=== PATIENT | male | born 1970 | race African-American/Black ===

== ENCOUNTER 2024-06-26 08:18 | Emergency (ER) | payer BC, MEDICAID ==
[~2024-06-26] VITALS: Ht 167.6 cm; Wt 102.0 kg
[2024-06-26 08:48] LABS: CLARITY URINE CLEAR (CLEAR); COLOR URINE DARK YELLOW (YELLOW); GLUCOSE URINE NEGATIVE (NEGATIVE); KETONES URINE NEGATIVE (NEGATIVE); LEUKOCYTE ESTERASE URINE NEGATIVE (NEGATIVE); NITRITE URINE NEGATIVE (NEGATIVE); OCCULT BLOOD URINE TRACE (NEGATIVE); PH URINE 5.5 (4.5-8.0); PROTEIN URINE 3+ (NEGATIVE); SPECIFIC GRAVITY URINE 1.023 (1.005-1.030)
[2024-06-26 08:50] LABS: BASOPHILS % 1.4 % (0.0-2.0); DIFFERENTIAL COMMENT 0; EOSINOPHILS % 1.5 % (0.0-5.0); HEMATOCRIT. 38.2 % (42.0-52.0); HEMOGLOBIN. 12.4 g/dL (14.0-18.0); LYMPHOCYTES % 9.3 % (20.0-50.0); MEAN CORPUSCULAR HEMOGLOBIN 29.1 pg (28.0-32.0); MEAN CORPUSCULAR HGB CONC 32.3 g/dL (31.0-37.0); MEAN CORPUSCULAR VOLUME 90.1 fL (80.0-94.0); MEAN PLATELET VOLUME 8.3 fl (7.4-10.4); MONOCYTES % 7.6 % (2.0-8.0); NEUTROPHILS % 80.2 % (40.0-76.0); PLATELET 339 x1000/uL (130-400); RED BLOOD CELL COUNT 4.24 mill/uL (4.7-6.1); RED CELL DISTRIBUTION WIDTH 16.5 % (11.6-14.6); WHITE BLOOD COUNT 6.4 x1000/uL (4.5-11.0)
[2024-06-26 08:57] LABS: POTASSIUM 4.5 mEq/L (3.5-5.1)
[2024-06-26 08:58] LABS: CALCIUM 10.2 mg/dL (8.7-10.4)
[2024-06-26 09:03] LABS: CREATININE 2.2 mg/dL (0.6-1.3)
[2024-06-26 09:04] LABS: ALANINE AMINOTRANSFERASE 58 IU/L (10-49); ALBUMIN 4.2 g/dL (3.2-4.8); ASPARTATE AMINOTRANSFERASE 46 IU/L (<34); BILIRUBIN DIRECT 0.6 mg/dL (<=3.0); BILIRUBIN TOTAL 1.5 mg/dL (0.1-1.0)
[2024-06-26 09:05] LABS: PROTEIN TOTAL 7.2 g/dL (6.0-8.3)
[2024-06-26 09:09] LABS: FINE GRANULAR CASTS URINE 0-5 /lpf; SQUAMOUS EPITHELIAL CELL URINE FEW /lpf (RARE/1+)
[2024-06-26 09:10] LABS: RBC URINE 0-2 /hpf (0-2); WBC URINE 0-2 /hpf (0-2)
[2024-06-26 09:11] LABS: BACTERIA URINE NONE SEEN; MUCUS URINE TRACE /lpf (NONE/TRACE)
[2024-06-26 10:40] VITALS: PULSE 61; RESP 22; O2SAT 99
[2024-06-26] MEDS: MAGNESIUM/ALUMINUM HYDROXIDE/SIMETHICONE 30ML UDC PO STA (10:59)
[2024-06-26] MEDS: ONDANSETRON 4MG ODT PO STA (10:59)
[2024-06-26] MEDS: DICYCLOMINE 10 MG/5 ML ORAL SYR PO STA (10:59)
[2024-06-26] MEDS: KETOROLAC 30MG/ML VIAL IM STA (11:00)
[2024-06-26 12:26] VITALS: PULSE 61; RESP 22; O2SAT 99
[2024-06-26] MEDS ORDERED: FAMO-135 MT (13:19)
[2024-06-26] MEDS ORDERED: IBUP-2029 MT (13:19)
[2024-06-26 13:26] VITALS: BP 123/87; TEMP 36.66960; O2SAT 99
[2024-06-26 16:15] VITALS: PULSE 82; RESP 20; O2SAT 95
[2024-07-04] MEDS ORDERED: COR3 PO (11:50)
[2024-07-04] MEDS ORDERED: LOSA25TA26 PO (11:50)
[2024-07-04] MEDS ORDERED: ASPI-1160 PO (11:50)
[2024-07-04] MEDS ORDERED: ATOR40TA70 MT (11:50)
[2024-07-04] MEDS ORDERED: EMPA10TA PO (11:50)
[2024-07-04] MEDS ORDERED: FURO80TA3 MT (11:50)
== END 2024-06-26 13:30 | disposition home or self-care (01) ==
LOC: ER 09:02
DX: N17.9 Acute kidney failure, unspecified (principal); K76.0 Fatty (change of) liver, not elsewhere classified; I11.9 Hypertensive heart disease without heart failure; I25.2 Old myocardial infarction
CPT/HCPCS: 80076; 80048; 81003; 83690; 85025; 36415; 76700; 94640; 96372; 99285; Q0162; J1885; Z7610 ×2

== ENCOUNTER 2024-08-07 09:05 | Emergency (ER) | payer BC, MEDICAID ==
[~2024-08-07] VITALS: Ht 170.2 cm; Wt 99.7 kg
[~2024-08-07 09:05] MED LIST: ASPI-1160 PO; ATOR40TA70 MT; COR3 PO; EMPA10TA PO; FAMO-135 MT; FURO80TA3 MT; IBUP-2029 MT; LOSA25TA26 PO
[2024-08-07 09:06] VITALS: O2SAT 98
[2024-08-07] MEDS ORDERED: ATOR40TA70 MT (09:24)
[2024-08-07] MEDS ORDERED: LOSA25TA26 PO (09:24)
[2024-08-07] MEDS ORDERED: COR3 PO (09:24)
[2024-08-07] MEDS ORDERED: ASPI-1160 PO (09:24)
[2024-08-07] MEDS ORDERED: EMPA10TA PO (09:24)
[2024-08-07] MEDS ORDERED: FURO80TA3 MT (09:24)
[2024-08-07 09:26] VITALS: BP 144/87; PULSE 81; RESP 18; TEMP 36.78072; O2SAT 98
== END 2024-08-07 10:01 | disposition home or self-care (01) ==
LOC: ER 09:05
DX: Z76.0 Encounter for issue of repeat prescription (principal); I25.2 Old myocardial infarction; I10 Essential (primary) hypertension; Z79.899 Other long term (current) drug therapy; Z00.00 Encounter for general adult medical examination without abnormal findings
CPT/HCPCS: 99281

== ENCOUNTER 2024-10-03 03:12 | Inpatient (IN) | payer BC, MEDICAID ==
[~2024-10-03] VITALS: Ht 170.2 cm; Wt 92.5 kg
[2024-10-03 06:37] LABS: BASOPHILS % 1.8 % (0.0-2.0); EOSINOPHILS % 2.7 % (0.0-5.0); HEMATOCRIT. 36.3 % (42.0-52.0); HEMOGLOBIN. 11.5 g/dL (14.0-18.0); LYMPHOCYTES % 12.3 % (20.0-50.0); MEAN CORPUSCULAR HEMOGLOBIN 27.4 pg (28.0-32.0); MEAN CORPUSCULAR HGB CONC 31.7 g/dL (31.0-37.0); MEAN CORPUSCULAR VOLUME 86.5 fL (80.0-94.0); MEAN PLATELET VOLUME 9.1 fl (7.4-10.4); MONOCYTES % 10.9 % (2.0-8.0); NEUTROPHILS % 72.3 % (40.0-76.0); PLATELET 264 x1000/uL (130-400); RED CELL DISTRIBUTION WIDTH 19.2 % (11.6-14.6); WHITE BLOOD COUNT 4.7 x1000/uL (4.5-11.0)
[2024-10-03 07:03] LABS: INR 1.2; PARTIAL THROMBOPLASTIN TIME 27.9 sec (23.4-31.0)
[2024-10-03 08:33] LABS: CHLORIDE 102 mEq/L (98-107); POTASSIUM 4.6 mEq/L (3.5-5.1); SODIUM 137 mEq/L (136-145)
[2024-10-03 08:35] LABS: CALCIUM 9.4 mg/dL (8.7-10.4); CARBON DIOXIDE 26 mEq/L (21-32)
[2024-10-03 08:40] LABS: CREATININE 2.1 mg/dL (0.6-1.3); GLUCOSE 94 mg/dL (70-105); UREA NITROGEN BLOOD 44 mg/dL (9-23)
[2024-10-03 08:42] LABS: ALANINE AMINOTRANSFERASE 26 IU/L (10-49); ASPARTATE AMINOTRANSFERASE 31 IU/L (<34); BILIRUBIN DIRECT 0.8 mg/dL (<=3.0); BILIRUBIN TOTAL 2.1 mg/dL (0.1-1.0); PROTEIN TOTAL 7.3 g/dL (6.0-8.3)
[2024-10-03] MEDS: FUROSEMIDE 40MG/4ML VIAL IVP SCH ×2 (08:50→17:05)
[2024-10-03] MEDS: FUROSEMIDE 40MG/4ML VIAL IVP ONE (08:51)
[2024-10-03 09:09] LABS: TROPONIN I HIGH SENSITIVITY 267 ng/L (3.0-53)
[2024-10-03 09:18] LABS: CLARITY URINE CLEAR (CLEAR); COLOR URINE DARK YELLOW (YELLOW); GLUCOSE URINE NEGATIVE (NEGATIVE); KETONES URINE TRACE (NEGATIVE); LEUKOCYTE ESTERASE URINE NEGATIVE (NEGATIVE); NITRITE URINE NEGATIVE (NEGATIVE); OCCULT BLOOD URINE NEGATIVE (NEGATIVE); PROTEIN URINE 3+ (NEGATIVE); SPECIFIC GRAVITY URINE 1.024 (1.005-1.030)
[2024-10-03 09:31] LABS: BACTERIA URINE NONE SEEN; RBC URINE 0-2 /hpf (0-2); SQUAMOUS EPITHELIAL CELL URINE NONE SEEN /lpf (RARE/1+); WBC URINE 0-2 /hpf (0-2); YEAST URINE NONE SEEN
[2024-10-03] MEDS ORDERED: ACETAMINOPHEN 325MG TABLET PO PRN (10:15)
[2024-10-03] MEDS ORDERED: DOCUSATE SODIUM 100MG CAPSULE PO PRN (10:15)
[2024-10-03] MEDS ORDERED: MAGNESIUM/ALUMINUM HYDROXIDE/SIMETHICONE 30ML UDC PO PRN (10:15)
[2024-10-03] MEDS ORDERED: IPRATROPIUM/ALBUTEROL 0.5-3(2.5)MG/3ML NEB NEB PRN (10:15)
[2024-10-03] MEDS ORDERED: CLONIDINE 0.1MG TABLET PO PRN (10:15)
[2024-10-03 10:52] LABS: *AMPHETAMINES SCREEN URINE NEGATIVE (NEGATIVE); *BARBITURATES SCREEN URINE NEGATIVE (NEGATIVE); *BENZODIAZEPINES SCREEN URINE NEGATIVE (NEGATIVE); *COCAINE SCREEN URINE NEGATIVE (NEGATIVE); CANNABINOID URINE SCREEN NEGATIVE (NEGATIVE); ECSTASY MDMA SCREEN URINE NEGATIVE (NEGATIVE); METHADONE URINE SCREEN NEGATIVE (NEGATIVE); OPIATES URINE SCREEN NEGATIVE (NEGATIVE); PHENCYCLIDINE URINE SCREEN NEGATIVE (NEGATIVE)
[2024-10-03] MEDS: FAMOTIDINE 20MG TABLET PO SCH (11:07)
[2024-10-03] MEDS: ENOXAPARIN 40MG/0.4ML SYR SUBCUT SCH (11:07)
[2024-10-03] MEDS: METOLAZONE 5MG TABLET PO SCH (11:07)
[2024-10-03 12:28] LABS: IRON 33 ug/dL (65-175); TRIGLYCERIDE 91 mg/dL (0-150)
[2024-10-03 12:29] LABS: LDL CHOLESTEROL 75 mg/dL (5-100)
[2024-10-03 12:30] LABS: CHOLESTEROL 130 mg/dL (<200); HDL CHOLESTEROL 38 mg/dL (>55); TOTAL IRON BINDING CAPACITY 431 ug/dl (250-425)
[2024-10-03 12:32] LABS: T4 FREE 1.62 ng/dL (0.89-1.76); THYROID STIMULATING HORMONE 0.69 uIU/mL (0.55-4.78)
[2024-10-03 14:00] VITALS: BP 143/93; PULSE 96; RESP 20; TEMP 36.6696; O2SAT 99
[2024-10-03 14:03] VITALS: BP 143/93; PULSE 96; RESP 20; TEMP 36.696
[2024-10-03 17:06] VITALS: BP 121/76; PULSE 99; RESP 20; TEMP 37.00296; O2SAT 95
[2024-10-03] MEDS: ACETAMINOPHEN 325MG TABLET PO PRN (17:06)
[2024-10-03] MEDS: GUAIFENESIN 200MG/10ML SUGAR FREE UDC PO PRN (17:19)
[2024-10-03 19:27] LABS: CREATINE KINASE MB FRACTION 4.3 ng/mL (0.5-3.6)
[2024-10-03 19:34] LABS: VITAMIN B12 SERUM 722 pg/mL (211-911)
[2024-10-03 19:45] LABS: HEPATITIS B SURFACE ANTIGEN NEGATIVE (Negative)
[2024-10-03 19:47] LABS: FOLIC ACID (FOLATE) SERUM > 20.00 ng/mL (>5.38)
[2024-10-03 20:00] VITALS: BP 139/84; PULSE 96; RESP 20; TEMP 36.05844; O2SAT 97
[2024-10-03 20:06] LABS: HEPATITIS C AB NON REACTIVE (Neg) (Negative)
[2024-10-03] MEDS: ZOLPIDEM TARTRATE 5MG TABLET PO PRN (20:40)
[2024-10-03] MEDS: SPIRONOLACTONE 25MG TABLET PO SCH (20:41)
[2024-10-03] MEDS ORDERED: FAMOTIDINE 20MG TABLET PO SCH (21:00)
[2024-10-04] VITALS: BP 119/80; PULSE 45; RESP 20; TEMP 36.3918; O2SAT 98
[2024-10-04 00:43] LABS: CREATINE KINASE MB FRACTION 5.1 ng/mL (0.5-3.6)
[2024-10-04 04:00] VITALS: BP 134/83; PULSE 92; RESP 20; TEMP 36.6696; O2SAT 93; O2SAT 98
[2024-10-04 08:00] VITALS: BP 116/89; PULSE 95; RESP 19; TEMP 36.3918; O2SAT 98
[2024-10-04 12:00] VITALS: BP 139/82; PULSE 94; RESP 20; TEMP 36.89184; O2SAT 97
[2024-10-04 13:11] LABS: BASOPHILS % 2.3 % (0.0-2.0); DIFFERENTIAL COMMENT 0; EOSINOPHILS % 1.5 % (0.0-5.0); HEMATOCRIT. 36.7 % (42.0-52.0); HEMOGLOBIN. 11.6 g/dL (14.0-18.0); LYMPHOCYTES % 13.8 % (20.0-50.0); MEAN CORPUSCULAR HEMOGLOBIN 26.8 pg (28.0-32.0); MEAN CORPUSCULAR HGB CONC 31.7 g/dL (31.0-37.0); MEAN CORPUSCULAR VOLUME 84.7 fL (80.0-94.0); MEAN PLATELET VOLUME 9.2 fl (7.4-10.4); MONOCYTES % 14.9 % (2.0-8.0); NEUTROPHILS % 67.5 % (40.0-76.0); PLATELET 287 x1000/uL (130-400); RED BLOOD CELL COUNT 4.33 mill/uL (4.7-6.1); RED CELL DISTRIBUTION WIDTH 18.7 % (11.6-14.6); WHITE BLOOD COUNT 5.7 x1000/uL (4.5-11.0)
[2024-10-04 13:14] LABS: CHLORIDE 96 mEq/L (98-107); POTASSIUM 3.8 mEq/L (3.5-5.1); SODIUM 132 mEq/L (136-145)
[2024-10-04 13:17] LABS: CALCIUM 9.8 mg/dL (8.7-10.4); CARBON DIOXIDE 26 mEq/L (21-32)
[2024-10-04 13:22] LABS: CREATININE 2.1 mg/dL (0.6-1.3); GLUCOSE 94 mg/dL (70-105); UREA NITROGEN BLOOD 48 mg/dL (9-23)
[2024-10-04 13:24] LABS: ALANINE AMINOTRANSFERASE 30 IU/L (10-49); ALBUMIN 4.1 g/dL (3.2-4.8); ASPARTATE AMINOTRANSFERASE 34 IU/L (<34); BILIRUBIN TOTAL 2.2 mg/dL (0.1-1.0); PHOSPHORUS 3.4 mg/dL (2.5-4.9); PROTEIN TOTAL 7.7 g/dL (6.0-8.3)
[2024-10-04 16:00] VITALS: BP 131/82; PULSE 96; RESP 18; TEMP 36.72516; O2SAT 96
[2024-10-04] MEDS: NITROGLYCERIN 0.4MG TABLET SL SL PRN (19:36)
[2024-10-04 20:00] VITALS: BP 121/75; PULSE 98; RESP 20; TEMP 36.61404; O2SAT 95
[2024-10-05] VITALS: BP 130/79; PULSE 82; RESP 18; TEMP 36.78072; O2SAT 97
[2024-10-05 08:00] VITALS: BP 112/72; PULSE 93; RESP 18; TEMP 36.3918; O2SAT 98
[2024-10-05] MEDS: ONDANSETRON HCL 4MG/2ML INJ IV PRN (09:33)
[2024-10-05] MEDS ORDERED: SPIR25TA MT (09:57)
[2024-10-05] MEDS ORDERED: FURO80TA3 MT (09:57)
[2024-10-05 12:00] VITALS: BP 121/87; PULSE 86; RESP 19; TEMP 36.28068; O2SAT 97
[2024-10-05 13:21] LABS: BASOPHILS % 1.3 % (0.0-2.0); EOSINOPHILS % 1.6 % (0.0-5.0); HEMOGLOBIN. 13.1 g/dL (14.0-18.0); LYMPHOCYTES % 8.5 % (20.0-50.0); MEAN CORPUSCULAR HEMOGLOBIN 27.2 pg (28.0-32.0); MEAN CORPUSCULAR VOLUME 84.9 fL (80.0-94.0); NEUTROPHILS % 76.6 % (40.0-76.0); PLATELET 318 x1000/uL (130-400); RED BLOOD CELL COUNT 4.83 mill/uL (4.7-6.1); RED CELL DISTRIBUTION WIDTH 18.7 % (11.6-14.6); WHITE BLOOD COUNT 7.1 x1000/uL (4.5-11.0)
[2024-10-05 13:31] LABS: CHLORIDE 94 mEq/L (98-107); SODIUM 131 mEq/L (136-145)
[2024-10-05 13:32] LABS: CARBON DIOXIDE 26 mEq/L (21-32)
[2024-10-05 13:37] LABS: CREATININE 2.2 mg/dL (0.6-1.3); GLUCOSE 99 mg/dL (70-105); UREA NITROGEN BLOOD 43 mg/dL (9-23)
[2024-10-05 13:39] LABS: ALANINE AMINOTRANSFERASE 29 IU/L (10-49); ALBUMIN 4.1 g/dL (3.2-4.8); ASPARTATE AMINOTRANSFERASE 32 IU/L (<34); PHOSPHORUS 4.5 mg/dL (2.5-4.9)
[2024-10-05 13:40] LABS: PROTEIN TOTAL 7.5 g/dL (6.0-8.3)
[2024-10-05 16:00] VITALS: BP 126/87; PULSE 88; RESP 19; TEMP 36.33624; O2SAT 97
[2024-10-05 17:25] VITALS: BP 126/87; PULSE 88; TEMP 97.7; O2SAT 97
== END 2024-10-05 18:54 | disposition home or self-care (01) | DRG 280 ==
LOC: ER 03:21 → 7WST 09:05 → EDBEDREQ 09:10
PROVIDERS: ADMIT Internal Medicine; ATTEND Internal Medicine
DX: I13.0 Hypertensive heart and chronic kidney disease with heart failure and stage 1 through stage 4 chronic kidney disease, or unspecified chronic kidney disease (principal); I50.43 Acute on chronic combined systolic (congestive) and diastolic (congestive) heart failure; I21.A1 Myocardial infarction type 2; J96.01 Acute respiratory failure with hypoxia; N17.9 Acute kidney failure, unspecified; Z20.822 Contact with and (suspected) exposure to COVID-19; I42.9 Cardiomyopathy, unspecified; J44.9 Chronic obstructive pulmonary disease, unspecified; D63.8 Anemia in other chronic diseases classified elsewhere; F15.10 Other stimulant abuse, uncomplicated; I44.0 Atrioventricular block, first degree; N18.9 Chronic kidney disease, unspecified; I25.10 Atherosclerotic heart disease of native coronary artery without angina pectoris; K74.60 Unspecified cirrhosis of liver; Z91.148 Patient's other noncompliance with medication regimen for other reason; Z87.891 Personal history of nicotine dependence
CPT/HCPCS: 36415; 71045; 80048; 80053; 80061; 80076; 80305; 81003; 82550; 82553; 82607; 82746; 83036; 83540; 83550; 83735; 83880; 84100; 84439; 84443; 84484; 85025; 86705; 87340; 87426; 93005; 99285; J1650; J1940; J2405

== ENCOUNTER 2025-02-16 08:21 | Inpatient (IN) | payer BC, MEDICAID ==
[~2025-02-16] VITALS: Ht 170.2 cm; Wt 95.3 kg
[~2025-02-16 08:21] MED LIST changes: +AMI2 PO; -ATOR40TA70 MT; +ATOR40TA70 PO; +CYAN-50 MT; +FURO40TA5 MT; -FURO80TA3 MT; -IBUP-2029 MT; -LOSA25TA26 PO; +LOSA50TA41 MT; +POTA-205 MT
[2025-02-16 08:48] LABS: BASOPHILS % 1.2 % (0.0-2.0); EOSINOPHILS % 5.2 % (0.0-5.0); HEMATOCRIT. 36.4 % (42.0-52.0); HEMOGLOBIN. 11.2 g/dL (14.0-18.0); LYMPHOCYTES % 12.9 % (20.0-50.0); MEAN CORPUSCULAR HEMOGLOBIN 25.2 pg (28.0-32.0); MEAN CORPUSCULAR HGB CONC 30.7 g/dL (31.0-37.0); MEAN CORPUSCULAR VOLUME 82.2 fL (80.0-94.0); MEAN PLATELET VOLUME 8.2 fl (7.4-10.4); MONOCYTES % 14.7 % (2.0-8.0); PLATELET 282 x1000/uL (130-400); RED BLOOD CELL COUNT 4.43 mill/uL (4.7-6.1); RED CELL DISTRIBUTION WIDTH 21.8 % (11.6-14.6); WHITE BLOOD COUNT 4.7 x1000/uL (4.5-11.0)
[2025-02-16 08:58] LABS: INR 1.2; PROTHROMBIN TIME 12.5 sec (9.6-11.0)
[2025-02-16 09:00] LABS: CHLORIDE 107 mEq/L (98-107); POTASSIUM 4.5 mEq/L (3.5-5.1); SODIUM 137 mEq/L (136-145)
[2025-02-16 09:01] LABS: CALCIUM 8.7 mg/dL (8.7-10.4); CARBON DIOXIDE 27 mEq/L (21-32)
[2025-02-16 09:06] LABS: GLUCOSE 100 mg/dL (70-105); UREA NITROGEN BLOOD 41 mg/dL (9-23)
[2025-02-16 09:08] LABS: ALANINE AMINOTRANSFERASE 23 IU/L (10-49); ALBUMIN 3.5 g/dL (3.2-4.8); ASPARTATE AMINOTRANSFERASE 26 IU/L (<34); BILIRUBIN DIRECT 0.6 mg/dL (<=3.0)
[2025-02-16 09:09] LABS: CREATININE 2.4 mg/dL (0.6-1.3); PROTEIN TOTAL 6.6 g/dL (6.0-8.3); TROPONIN I HIGH SENSITIVITY 117 ng/L (3.0-53)
[2025-02-16] MEDS: KETOROLAC 30MG/ML VIAL IV STA (09:27)
[2025-02-16] MEDS: ONDANSETRON HCL 4MG/2ML INJ IV STA (09:27)
[2025-02-16] MEDS: ASPIRIN 325MG EC TABLET PO ONE (09:59)
[2025-02-16] MEDS: ENOXAPARIN 80MG/0.8ML SYR SUBCUT ONE (09:59)
[2025-02-16] MEDS ORDERED: MAGNESIUM/ALUMINUM HYDROXIDE/SIMETHICONE 30ML UDC PO PRN (12:15)
[2025-02-16] MEDS ORDERED: GUAIFENESIN 200MG/10ML SUGAR FREE UDC PO PRN (12:15)
[2025-02-16] MEDS ORDERED: IPRATROPIUM/ALBUTEROL 0.5-3(2.5)MG/3ML NEB HHN PRN (12:15)
[2025-02-16] MEDS ORDERED: ONDANSETRON HCL 4MG/2ML INJ IV PRN (12:15)
[2025-02-16] MEDS ORDERED: DOCUSATE SODIUM 100MG CAPSULE PO PRN (12:15)
[2025-02-16] MEDS ORDERED: ACETAMINOPHEN 325MG TABLET PO PRN ×2 (12:15)
[2025-02-16] MEDS ORDERED: CLONIDINE 0.1MG TABLET PO PRN (12:15)
[2025-02-16 12:28] VITALS: BP 147/93; PULSE 68; RESP 18; TEMP 36.5
[2025-02-16] MEDS: PANTOPRAZOLE SODIUM 40 MG/VIAL IV SCH (13:14)
[2025-02-16] MEDS: EMPAGLIFLOZIN 10MG TABLET PO SCH (13:14)
[2025-02-16] MEDS: FUROSEMIDE 40MG/4ML VIAL IVP SCH ×2 (13:14→20:18)
[2025-02-16] MEDS: SPIRONOLACTONE 25MG TABLET PO SCH (13:19)
[2025-02-16 13:25] VITALS: BP 125/81
[2025-02-16 15:48] LABS: CLARITY URINE CLEAR (CLEAR); COLOR URINE YELLOW (YELLOW); GLUCOSE URINE 1+ (NEGATIVE); KETONES URINE NEGATIVE (NEGATIVE); LEUKOCYTE ESTERASE URINE NEGATIVE (NEGATIVE); NITRITE URINE NEGATIVE (NEGATIVE); OCCULT BLOOD URINE NEGATIVE (NEGATIVE); PROTEIN URINE TRACE (NEGATIVE); SPECIFIC GRAVITY URINE 1.009 (1.005-1.030)
[2025-02-16 16:00] VITALS: BP 138/91; PULSE 67; RESP 18; TEMP 35.9; O2SAT 100
[2025-02-16 16:03] LABS: *AMPHETAMINES SCREEN URINE NEGATIVE (NEGATIVE); *BARBITURATES SCREEN URINE NEGATIVE (NEGATIVE); *BENZODIAZEPINES SCREEN URINE NEGATIVE (NEGATIVE); *COCAINE SCREEN URINE NEGATIVE (NEGATIVE); CANNABINOID URINE SCREEN NEGATIVE (NEGATIVE); ECSTASY MDMA SCREEN URINE NEGATIVE (NEGATIVE); METHADONE URINE SCREEN NEGATIVE (NEGATIVE); OPIATES URINE SCREEN NEGATIVE (NEGATIVE); PHENCYCLIDINE URINE SCREEN NEGATIVE (NEGATIVE)
[2025-02-16 16:21] LABS: BACTERIA URINE TRACE; RBC URINE NONE SEEN /hpf (0-2); SQUAMOUS EPITHELIAL CELL URINE NONE SEEN /lpf (RARE/1+); WBC URINE 0-2 /hpf (0-2)
[2025-02-16 17:29] LABS: CHLORIDE 105 mEq/L (98-107); POTASSIUM 4.6 mEq/L (3.5-5.1); SODIUM 136 mEq/L (136-145)
[2025-02-16 17:30] LABS: CALCIUM 8.6 mg/dL (8.7-10.4); CARBON DIOXIDE 22 mEq/L (21-32)
[2025-02-16 17:35] LABS: CREATININE 2.4 mg/dL (0.6-1.3); GLUCOSE 95 mg/dL (70-105); UREA NITROGEN BLOOD 42 mg/dL (9-23)
[2025-02-16 17:37] LABS: ALANINE AMINOTRANSFERASE 25 IU/L (10-49); ALBUMIN 3.8 g/dL (3.2-4.8); ASPARTATE AMINOTRANSFERASE 26 IU/L (<34); BILIRUBIN TOTAL 1.3 mg/dL (0.1-1.0)
[2025-02-16 17:56] VITALS: BP 121/83
[2025-02-16 18:08] LABS: TROPONIN I HIGH SENSITIVITY 126 ng/L (3.0-53)
[2025-02-16] MEDS: AMIODARONE 200MG TABLET PO SCH (18:24)
[2025-02-16 18:50] LABS: CREATINE KINASE MB FRACTION 5.2 ng/mL (0.5-3.6)
[2025-02-16 20:05] VITALS: BP 123/85; PULSE 66; RESP 20; TEMP 35.3; O2SAT 97
[2025-02-16] MEDS: ATORVASTATIN CALCIUM 40MG TABLET PO SCH (20:18)
[2025-02-16] MEDS: CEFTRIAXONE 1GM/50ML 50 ML IV SCH (20:18)
[2025-02-16] MEDS: ENOXAPARIN 100MG/ML SYR SUBCUT SCH (20:18)
[2025-02-16] MEDS ORDERED: CARVEDILOL 3.125 MG TABLET PO SCH (21:00)
[2025-02-17 00:02] VITALS: BP 127/74; PULSE 62; RESP 18; TEMP 35.9; O2SAT 100
[2025-02-17 01:52] LABS: CREATINE KINASE MB FRACTION 4.1 ng/mL (0.5-3.6)
[2025-02-17 04:00] VITALS: BP 124/83; PULSE 64; RESP 19; TEMP 36; O2SAT 98
[2025-02-17 08:00] VITALS: BP 125/76; PULSE 67; RESP 18; TEMP 36.7; O2SAT 98
[2025-02-17 08:49] LABS: POTASSIUM 4.5 mEq/L (3.5-5.1)
[2025-02-17 08:51] LABS: CALCIUM 8.7 mg/dL (8.7-10.4)
[2025-02-17 08:55] LABS: CREATINE KINASE MB FRACTION 5.1 ng/mL (0.5-3.6); CREATININE 2.4 mg/dL (0.6-1.3)
[2025-02-17 08:56] LABS: HEMATOCRIT. 35.4 % (42.0-52.0); HEMOGLOBIN. 11.1 g/dL (14.0-18.0); MEAN CORPUSCULAR HEMOGLOBIN 25.2 pg (28.0-32.0); MEAN CORPUSCULAR HGB CONC 31.3 g/dL (31.0-37.0); MEAN CORPUSCULAR VOLUME 80.5 fL (80.0-94.0); MEAN PLATELET VOLUME 8.9 fl (7.4-10.4); PLATELET 300 x1000/uL (130-400); RED CELL DISTRIBUTION WIDTH 21.6 % (11.6-14.6); WHITE BLOOD COUNT 3.9 x1000/uL (4.5-11.0)
[2025-02-17 09:04] LABS: DIFFERENTIAL COMMENT 1
[2025-02-17] MEDS: ASPIRIN 81MG EC TABLET PO SCH (10:15)
[2025-02-17] MEDS: FERROUS SULFATE 325MG TABLET PO SCH (10:15)
[2025-02-17] MEDS: CARVEDILOL 3.125 MG TABLET PO SCH (10:25)
[2025-02-17 10:52] LABS: ANISOCYTOSIS 2+; PLATELET ESTIMATE NORMAL
[2025-02-17 12:00] VITALS: BP 120/67; PULSE 77; RESP 16; TEMP 36.5; O2SAT 99
[2025-02-17 16:00] VITALS: BP 118/74; PULSE 67; RESP 17; TEMP 36.4
[2025-02-17 20:00] VITALS: BP 123/81; PULSE 68; RESP 18; TEMP 36.3; O2SAT 98
[2025-02-17] MEDS: MELATONIN 3MG TABLET PO PRN (23:30)
[2025-02-18] VITALS: BP 120/82; PULSE 63; RESP 18; TEMP 36.3; O2SAT 97
[2025-02-18 04:00] VITALS: BP 106/64; PULSE 65; RESP 16; TEMP 36.4; O2SAT 95
[2025-02-18 08:28] VITALS: BP 120/78; PULSE 64; RESP 18; TEMP 36.6; O2SAT 97
[2025-02-18] MEDS: FAMOTIDINE 20MG/2ML VIAL IV SCH (08:33)
[2025-02-18 11:39] VITALS: BP 120/54; PULSE 60; RESP 18; TEMP 36.8; O2SAT 98
[2025-02-18 13:01] VITALS: BP 120/78; PULSE 60; TEMP 98; O2SAT 98
== END 2025-02-18 15:18 | disposition home or self-care (01) | DRG 280 ==
LOC: ER 08:34 → 8WST 10:14 → EDBEDREQ 10:22 → EDBEDREQTM 10:22 → ENRESERV 11:06
PROVIDERS: ADMIT Internal Medicine; ATTEND Internal Medicine
DX: I13.0 Hypertensive heart and chronic kidney disease with heart failure and stage 1 through stage 4 chronic kidney disease, or unspecified chronic kidney disease (principal); I50.23 Acute on chronic systolic (congestive) heart failure; I21.4 Non-ST elevation (NSTEMI) myocardial infarction; N17.9 Acute kidney failure, unspecified; Z59.01 Sheltered homelessness; I42.0 Dilated cardiomyopathy; I25.10 Atherosclerotic heart disease of native coronary artery without angina pectoris; E78.5 Hyperlipidemia, unspecified; D50.9 Iron deficiency anemia, unspecified; F19.10 Other psychoactive substance abuse, uncomplicated; N18.9 Chronic kidney disease, unspecified; F17.210 Nicotine dependence, cigarettes, uncomplicated; I44.7 Left bundle-branch block, unspecified; J45.909 Unspecified asthma, uncomplicated; K59.00 Constipation, unspecified; R14.0 Abdominal distension (gaseous); Z79.84 Long term (current) use of oral hypoglycemic drugs; Z79.899 Other long term (current) drug therapy; Z79.82 Long term (current) use of aspirin
CPT/HCPCS: 36415; 71045; 74018; 74176; 80048; 80053; 80076; 80305; 81003; 82550; 82553; 83880; 84484; 85025; 93005; 99285; A4606; J0696; J1650; J1885; J1940; J2405; J2470; J3490

== ENCOUNTER 2025-03-06 20:38 | Inpatient (IN) | payer BC, MEDICAID ==
[~2025-03-06] VITALS: Ht 170.2 cm; Wt 89.4 kg
[~2025-03-06 20:38] MED LIST changes: +FURO80TA3 PO; +LEVO250T74 MT; -LOSA50TA41 MT
[2025-03-06 21:10] LABS: BASOPHILS % 2.2 % (0.0-2.0); EOSINOPHILS % 1.8 % (0.0-5.0); HEMATOCRIT. 36.1 % (42.0-52.0); HEMOGLOBIN. 11.2 g/dL (14.0-18.0); LYMPHOCYTES % 16.2 % (20.0-50.0); MEAN CORPUSCULAR HEMOGLOBIN 25.3 pg (28.0-32.0); MEAN CORPUSCULAR VOLUME 81.9 fL (80.0-94.0); MEAN PLATELET VOLUME 8.7 fl (7.4-10.4); MONOCYTES % 10.9 % (2.0-8.0); NEUTROPHILS % 68.9 % (40.0-76.0); PLATELET 268 x1000/uL (130-400); RED BLOOD CELL COUNT 4.41 mill/uL (4.7-6.1); RED CELL DISTRIBUTION WIDTH 21.4 % (11.6-14.6); WHITE BLOOD COUNT 5.4 x1000/uL (4.5-11.0)
[2025-03-06 21:19] LABS: INR 1.1
[2025-03-06 21:20] LABS: CHLORIDE 103 mEq/L (98-107); POTASSIUM 4.1 mEq/L (3.5-5.1); SODIUM 136 mEq/L (136-145)
[2025-03-06 21:21] LABS: CALCIUM 9.4 mg/dL (8.7-10.4); CARBON DIOXIDE 21 mEq/L (21-32)
[2025-03-06 21:26] LABS: GLUCOSE 105 mg/dL (70-105); UREA NITROGEN BLOOD 31 mg/dL (9-23)
[2025-03-06 21:27] LABS: ETHANOL BLOOD < 10 mg/dL (<10)
[2025-03-06 21:28] LABS: ALANINE AMINOTRANSFERASE 30 IU/L (10-49); ALBUMIN 4.5 g/dL (3.2-4.8); ASPARTATE AMINOTRANSFERASE 32 IU/L (<34); BILIRUBIN DIRECT 0.8 mg/dL (<=3.0)
[2025-03-06 21:29] LABS: BILIRUBIN TOTAL 2.1 mg/dL (0.1-1.0); TROPONIN I HIGH SENSITIVITY 154 ng/L (3.0-53)
[2025-03-06] MEDS: DICYCLOMINE HCL 10MG CAPSULE PO SCH (21:52)
[2025-03-06] MEDS: ONDANSETRON 4MG ODT PO STA (21:53)
[2025-03-06] MEDS: MAGNESIUM/ALUMINUM HYDROXIDE/SIMETHICONE 30ML UDC PO STA (21:53)
[2025-03-06] MEDS: FAMOTIDINE 20MG TABLET PO ONE (21:53)
[2025-03-06] MEDS: DICYCLOMINE 10 MG/5 ML ORAL SYR PO STA (21:54)
[2025-03-06 22:19] LABS: CLARITY URINE CLEAR (CLEAR); COLOR URINE YELLOW (YELLOW); GLUCOSE URINE TRACE (NEGATIVE); KETONES URINE NEGATIVE (NEGATIVE); LEUKOCYTE ESTERASE URINE NEGATIVE (NEGATIVE); NITRITE URINE NEGATIVE (NEGATIVE); OCCULT BLOOD URINE NEGATIVE (NEGATIVE); PH URINE 6.5 (4.5-8.0); PROTEIN URINE NEGATIVE (NEGATIVE); SPECIFIC GRAVITY URINE 1.007 (1.005-1.030); UROBILINOGEN URINE 0.2 E.U./dL (0.2-1.0)
[2025-03-06 22:24] LABS: *AMPHETAMINES SCREEN URINE NEGATIVE (NEGATIVE); *BARBITURATES SCREEN URINE NEGATIVE (NEGATIVE); *BENZODIAZEPINES SCREEN URINE NEGATIVE (NEGATIVE); *COCAINE SCREEN URINE NEGATIVE (NEGATIVE); CANNABINOID URINE SCREEN NEGATIVE (NEGATIVE); ECSTASY MDMA SCREEN URINE NEGATIVE (NEGATIVE); METHADONE URINE SCREEN NEGATIVE (NEGATIVE); OPIATES URINE SCREEN NEGATIVE (NEGATIVE); PHENCYCLIDINE URINE SCREEN NEGATIVE (NEGATIVE)
[2025-03-06 22:32] LABS: BACTERIA URINE NONE SEEN; RBC URINE NONE SEEN /hpf (0-2); SQUAMOUS EPITHELIAL CELL URINE RARE /lpf (RARE/1+); WBC URINE 0-2 /hpf (0-2)
[2025-03-06] MEDS: FUROSEMIDE 40MG/4ML VIAL IVP ONE (22:37)
[2025-03-06] MEDS ORDERED: FUROSEMIDE 40MG/4ML VIAL IVP SCH (23:30)
[2025-03-06] MEDS ORDERED: ONDANSETRON HCL 4MG/2ML INJ IV PRN (23:30)
[2025-03-06] MEDS ORDERED: ZOLPIDEM TARTRATE 5MG TABLET PO PRN (23:30)
[2025-03-06] MEDS ORDERED: ACETAMINOPHEN 325MG TABLET PO PRN (23:30)
[2025-03-06] MEDS ORDERED: CLONIDINE 0.1MG TABLET PO PRN (23:30)
[2025-03-06] MEDS ORDERED: NALOXONE HCL 0.4MG/ML VIAL IV PRN (23:45)
[2025-03-07] VITALS (10 sets, daily range): BP systolic 98–126; BP diastolic 47–82; PULSE 63–89; RESP 18–20; TEMP 35.7–36.4; O2SAT 94–100
[2025-03-07] MEDS: IPRATROPIUM/ALBUTEROL 0.5-3(2.5)MG/3ML NEB NEB SCH (03:32)
[2025-03-07] MEDS: PANTOPRAZOLE SODIUM 40 MG/VIAL IV SCH (08:25)
[2025-03-07] MEDS: ASPIRIN 81MG TABLET PO SCH (08:25)
[2025-03-07] MEDS: POTASSIUM CHLORIDE 20MEQ TABLET SR PO SCH (08:25)
[2025-03-07] MEDS: EMPAGLIFLOZIN 10MG TABLET PO SCH (08:26)
[2025-03-07] MEDS: AMIODARONE 200MG TABLET PO SCH (08:26)
[2025-03-07] MEDS: ATORVASTATIN CALCIUM 40MG TABLET PO SCH (08:26)
[2025-03-07] MEDS: CARVEDILOL 3.125 MG TABLET PO SCH (08:26)
[2025-03-07] MEDS: ENOXAPARIN 30MG/0.3ML SYR SUBCUT SCH (08:27)
[2025-03-07 12:38] LABS: HEMATOCRIT. 36.9 % (42.0-52.0); HEMOGLOBIN. 11.5 g/dL (14.0-18.0); MEAN CORPUSCULAR HEMOGLOBIN 25.3 pg (28.0-32.0); MEAN CORPUSCULAR HGB CONC 31.1 g/dL (31.0-37.0); MEAN CORPUSCULAR VOLUME 81.5 fL (80.0-94.0); MEAN PLATELET VOLUME 8.7 fl (7.4-10.4); PLATELET 239 x1000/uL (130-400); RED BLOOD CELL COUNT 4.53 mill/uL (4.7-6.1); WHITE BLOOD COUNT 4.2 x1000/uL (4.5-11.0)
[2025-03-07 12:45] LABS: DIFFERENTIAL COMMENT 1
[2025-03-07 12:50] LABS: POTASSIUM 3.9 mEq/L (3.5-5.1)
[2025-03-07 12:51] LABS: CALCIUM 8.9 mg/dL (8.7-10.4)
[2025-03-07 12:56] LABS: CREATININE 2.2 mg/dL (0.6-1.3)
[2025-03-07 13:32] LABS: PLATELET ESTIMATE NORMAL
[2025-03-07 13:33] LABS: ANISOCYTOSIS 2+; HYPOCHROMASIA 1+
[2025-03-07 18:02] LABS: TROPONIN I HIGH SENSITIVITY 146 ng/L (3.0-53)
[2025-03-07] MEDS: BUMETANIDE 1MG/4ML VIAL IV SCH (18:08)
[2025-03-07] MEDS: HYDROCODONE/ACETAMINOPHEN 5/325MG TABLET PO PRN (21:36)
[2025-03-08] VITALS (7 sets, daily range): BP systolic 107–120; BP diastolic 52–74; PULSE 64–81; RESP 16–20; TEMP 36.3–36.6; O2SAT 96–99
[2025-03-08 07:56] LABS: CALCIUM 9.1 mg/dL (8.7-10.4)
[2025-03-08 08:01] LABS: CREATININE 2.4 mg/dL (0.6-1.3)
[2025-03-08 08:45] LABS: BASOPHILS % 1.3 % (0.0-2.0); EOSINOPHILS % 3.7 % (0.0-5.0); HEMATOCRIT. 36.5 % (42.0-52.0); HEMOGLOBIN. 11.6 g/dL (14.0-18.0); LYMPHOCYTES % 18.9 % (20.0-50.0); MEAN CORPUSCULAR HEMOGLOBIN 25.8 pg (28.0-32.0); MEAN CORPUSCULAR HGB CONC 31.8 g/dL (31.0-37.0); MEAN PLATELET VOLUME 9.2 fl (7.4-10.4); MONOCYTES % 13.8 % (2.0-8.0); NEUTROPHILS % 62.3 % (40.0-76.0); PLATELET 249 x1000/uL (130-400); RED BLOOD CELL COUNT 4.51 mill/uL (4.7-6.1); RED CELL DISTRIBUTION WIDTH 21.3 % (11.6-14.6); WHITE BLOOD COUNT 4.5 x1000/uL (4.5-11.0)
== END 2025-03-08 13:30 | disposition home or self-care (01) | DRG 280 ==
LOC: ER 20:38 → EDBEDREQ 21:43 → 7WST 22:56 → EDBEDREQ 22:59
PROVIDERS: ADMIT Internal Medicine; ATTEND Internal Medicine
DX: I13.0 Hypertensive heart and chronic kidney disease with heart failure and stage 1 through stage 4 chronic kidney disease, or unspecified chronic kidney disease (principal); I50.23 Acute on chronic systolic (congestive) heart failure; I21.A1 Myocardial infarction type 2; I47.29 Other ventricular tachycardia; N18.4 Chronic kidney disease, stage 4 (severe); I44.7 Left bundle-branch block, unspecified; J44.9 Chronic obstructive pulmonary disease, unspecified; Z79.82 Long term (current) use of aspirin; Z79.899 Other long term (current) drug therapy
CPT/HCPCS: 36415; 71045; 74176; 76705; 80048; 80076; 80305; 80320; 81003; 83880; 84484; 85025; 93005; 93970; 94070; 94640; 94664; 94760; 98960; 99291; J1650; J1940; J2470; J3490; Q0162; G0480

== ENCOUNTER 2025-03-11 07:28 | Emergency (ER) | payer BC, MEDICAID ==
[~2025-03-11] VITALS: Ht 170.2 cm; Wt 95.0 kg
[~2025-03-11 07:28] MED LIST changes: -LEVO250T74 MT
[2025-03-11 07:45] VITALS: TEMP 36.7; O2SAT 95
[2025-03-11 08:04] LABS: BASOPHILS % 2.1 % (0.0-2.0); EOSINOPHILS % 2.1 % (0.0-5.0); HEMATOCRIT. 34.9 % (42.0-52.0); HEMOGLOBIN. 10.9 g/dL (14.0-18.0); LYMPHOCYTES % 9.2 % (20.0-50.0); MEAN CORPUSCULAR HEMOGLOBIN 25.6 pg (28.0-32.0); MEAN CORPUSCULAR HGB CONC 31.3 g/dL (31.0-37.0); MEAN PLATELET VOLUME 8.2 fl (7.4-10.4); MONOCYTES % 18.7 % (2.0-8.0); NEUTROPHILS % 67.9 % (40.0-76.0); PLATELET 264 x1000/uL (130-400); RED BLOOD CELL COUNT 4.26 mill/uL (4.7-6.1); RED CELL DISTRIBUTION WIDTH 21.4 % (11.6-14.6); WHITE BLOOD COUNT 5.6 x1000/uL (4.5-11.0)
[2025-03-11 08:17] LABS: DIFFERENTIAL COMMENT 1
[2025-03-11 08:22] LABS: POTASSIUM 4.7 mEq/L (3.5-5.1)
[2025-03-11 08:29] LABS: CREATININE 1.9 mg/dL (0.6-1.3)
[2025-03-11] MEDS: FUROSEMIDE 40MG TABLET PO NR (08:44)
[2025-03-11] MEDS: IBUPROFEN 600MG TABLET PO NR (08:45)
[2025-03-11 10:05] VITALS: BP 120/66; PULSE 78; RESP 18; O2SAT 98
== END 2025-03-11 10:12 | disposition home or self-care (01) ==
LOC: ER 07:28
DX: R51.9 Headache, unspecified (principal); I50.9 Heart failure, unspecified; I11.0 Hypertensive heart disease with heart failure; F12.90 Cannabis use, unspecified, uncomplicated; Z79.899 Other long term (current) drug therapy
CPT/HCPCS: 36415; 71045; 80048; 83880; 85025; 93005; 99285

== ENCOUNTER 2025-03-14 05:03 | Inpatient (IN) | payer BC, MEDICAID ==
[~2025-03-14] VITALS: Ht 182.9 cm; Wt 104.3 kg
[2025-03-14] VITALS (7 sets, daily range): BP systolic 91–134; BP diastolic 55–86; PULSE 75–95; RESP 18–24; TEMP 36.4–37.9; O2SAT 93–97
[2025-03-14] MEDS: MORPHINE SULFATE 4 MG/ML INJ (FOR IV/IM USE) IV STA (06:01)
[2025-03-14 06:02] LABS: BASOPHILS % 1.2 % (0.0-2.0); EOSINOPHILS % 1.2 % (0.0-5.0); HEMATOCRIT. 38.6 % (42.0-52.0); HEMOGLOBIN. 12.2 g/dL (14.0-18.0); LYMPHOCYTES % 10.1 % (20.0-50.0); MEAN CORPUSCULAR HGB CONC 31.7 g/dL (31.0-37.0); MEAN CORPUSCULAR VOLUME 81.9 fL (80.0-94.0); MEAN PLATELET VOLUME 8.5 fl (7.4-10.4); MONOCYTES % 10.3 % (2.0-8.0); NEUTROPHILS % 77.2 % (40.0-76.0); PLATELET 282 x1000/uL (130-400); RED BLOOD CELL COUNT 4.71 mill/uL (4.7-6.1); WHITE BLOOD COUNT 8.8 x1000/uL (4.5-11.0)
[2025-03-14] MEDS: ONDANSETRON HCL 4MG/2ML INJ IV STA (06:02)
[2025-03-14 06:12] LABS: ADD RBC MORPHOLOGY YES; DIFFERENTIAL COMMENT 1
[2025-03-14 06:23] LABS: CARBON DIOXIDE 21 mEq/L (21-32); CHLORIDE 106 mEq/L (98-107); POTASSIUM 4.4 mEq/L (3.5-5.1); SODIUM 136 mEq/L (136-145)
[2025-03-14 06:24] LABS: CALCIUM 9.1 mg/dL (8.7-10.4)
[2025-03-14 06:29] LABS: CREATININE 2.4 mg/dL (0.6-1.3); GLUCOSE 86 mg/dL (70-105); UREA NITROGEN BLOOD 33 mg/dL (9-23)
[2025-03-14 06:33] LABS: ANISOCYTOSIS 3+; PLATELET ESTIMATE NORMAL
[2025-03-14 06:35] LABS: TROPONIN I HIGH SENSITIVITY 172 ng/L (3.0-53)
[2025-03-14] MEDS: ENOXAPARIN 100MG/ML SYR SUBCUT ONE (08:31)
[2025-03-14 08:55] LABS: TROPONIN I HIGH SENSITIVITY 163 ng/L (3.0-53)
[2025-03-14] MEDS ORDERED: DOCUSATE SODIUM 100MG CAPSULE PO PRN (09:30)
[2025-03-14] MEDS ORDERED: CLONIDINE 0.1MG TABLET PO PRN (09:30)
[2025-03-14] MEDS ORDERED: ACETAMINOPHEN 325MG TABLET PO PRN (09:30)
[2025-03-14] MEDS ORDERED: IPRATROPIUM/ALBUTEROL 0.5-3(2.5)MG/3ML NEB HHN PRN (09:30)
[2025-03-14] MEDS: CEFTRIAXONE 1GM/50ML 50 ML IV SCH (10:14)
[2025-03-14] MEDS: FUROSEMIDE 40MG/4ML VIAL IVP SCH (10:14)
[2025-03-14] MEDS ORDERED: AZITHROMYCIN 500MG/250ML 250 ML IV SCH (11:00)
[2025-03-14 11:05] LABS: CLARITY URINE CLEAR (CLEAR); COLOR URINE YELLOW (YELLOW); GLUCOSE URINE 1+ (NEGATIVE); KETONES URINE 1+ (NEGATIVE); LEUKOCYTE ESTERASE URINE NEGATIVE (NEGATIVE); NITRITE URINE NEGATIVE (NEGATIVE); OCCULT BLOOD URINE TRACE (NEGATIVE); PROTEIN URINE 2+ (NEGATIVE); SPECIFIC GRAVITY URINE 1.022 (1.005-1.030)
[2025-03-14 11:20] LABS: T4 FREE 1.36 ng/dL (0.89-1.76); THYROID STIMULATING HORMONE 1.48 uIU/mL (0.55-4.78)
[2025-03-14 11:39] LABS: *AMPHETAMINES SCREEN URINE NEGATIVE (NEGATIVE); *BARBITURATES SCREEN URINE NEGATIVE (NEGATIVE); *BENZODIAZEPINES SCREEN URINE NEGATIVE (NEGATIVE)
[2025-03-14 11:40] LABS: *COCAINE SCREEN URINE NEGATIVE (NEGATIVE); CANNABINOID URINE SCREEN PRESUMPTIVE POSITIVE (NEGATIVE); ECSTASY MDMA SCREEN URINE NEGATIVE (NEGATIVE); METHADONE URINE SCREEN NEGATIVE (NEGATIVE); OPIATES URINE SCREEN PRESUMPTIVE POSITIVE (NEGATIVE); PHENCYCLIDINE URINE SCREEN NEGATIVE (NEGATIVE)
[2025-03-14 11:58] LABS: BACTERIA URINE TRACE; RBC URINE NONE SEEN /hpf (0-2); SQUAMOUS EPITHELIAL CELL URINE NONE SEEN /lpf (RARE/1+); WBC URINE 0-2 /hpf (0-2)
[2025-03-14] MEDS: AZITHROMYCIN 500MG in D5W 250ML IV SCH (12:46)
[2025-03-14] MEDS: ONDANSETRON HCL 4MG/2ML INJ IV PRN (15:31)
[2025-03-14] MEDS: IPRATROPIUM/ALBUTEROL 0.5-3(2.5)MG/3ML NEB HHN SCH (15:34)
[2025-03-14 17:08] LABS: CREATINE KINASE MB FRACTION 2.6 ng/mL (0.5-3.6)
[2025-03-14] MEDS: CARVEDILOL 3.125 MG TABLET PO SCH (21:59)
[2025-03-15] VITALS (8 sets, daily range): BP systolic 100–141; BP diastolic 51–99; PULSE 80–97; RESP 17–20; TEMP 36.3–37.7; O2SAT 92–99
[2025-03-15 00:32] LABS: CREATINE KINASE MB FRACTION 1.2 ng/mL (0.5-3.6)
[2025-03-15] MEDS: ACETAMINOPHEN 325MG TABLET PO PRN (05:25)
[2025-03-15 07:33] LABS: BASOPHILS % 1.9 % (0.0-2.0); EOSINOPHILS % 0.1 % (0.0-5.0); HEMATOCRIT. 34.5 % (42.0-52.0); LYMPHOCYTES % 9.3 % (20.0-50.0); MEAN CORPUSCULAR HGB CONC 31.9 g/dL (31.0-37.0); MEAN CORPUSCULAR VOLUME 81.4 fL (80.0-94.0); MEAN PLATELET VOLUME 8.8 fl (7.4-10.4); MONOCYTES % 13.7 % (2.0-8.0); PLATELET 235 x1000/uL (130-400); RED BLOOD CELL COUNT 4.23 mill/uL (4.7-6.1); RED CELL DISTRIBUTION WIDTH 21.4 % (11.6-14.6); WHITE BLOOD COUNT 5.1 x1000/uL (4.5-11.0)
[2025-03-15 07:45] LABS: CHLORIDE 99 mEq/L (98-107); SODIUM 131 mEq/L (136-145)
[2025-03-15 07:47] LABS: CARBON DIOXIDE 21 mEq/L (21-32)
[2025-03-15 07:48] LABS: CALCIUM 9.1 mg/dL (8.7-10.4); INR 1.1; PROTHROMBIN TIME 11.9 sec (9.6-11.0)
[2025-03-15 07:52] LABS: CREATININE 2.2 mg/dL (0.6-1.3)
[2025-03-15 07:53] LABS: GLUCOSE 99 mg/dL (70-105); UREA NITROGEN BLOOD 37 mg/dL (9-23)
[2025-03-15 07:54] LABS: ALANINE AMINOTRANSFERASE 34 IU/L (10-49); ALBUMIN 4.2 g/dL (3.2-4.8); ASPARTATE AMINOTRANSFERASE 59 IU/L (<34)
[2025-03-15 07:55] LABS: BILIRUBIN DIRECT 0.6 mg/dL (<=3.0); BILIRUBIN TOTAL 1.5 mg/dL (0.1-1.0); PHOSPHORUS 2.9 mg/dL (2.5-4.9); PROTEIN TOTAL 7.1 g/dL (6.0-8.3)
[2025-03-15] MEDS: LOSARTAN 25 MG TABLET PO SCH (09:00)
[2025-03-15] MEDS: PANTOPRAZOLE SODIUM 40 MG/VIAL IV SCH (09:12)
[2025-03-15] MEDS: ENOXAPARIN 40MG/0.4ML SYR SUBCUT SCH (09:31)
[2025-03-15] MEDS: ASPIRIN 81MG TABLET PO SCH (09:31)
[2025-03-15 10:34] LABS: BG CARBOXYHEMOGLOBIN 1.4 % (0.5-1.5); BG FRACTION INSPIRED OXYGEN 21; BG HCO3 ACT 20.3 mmol/L (21.0-28.0); BG METHEMOGLOBIN 0.1 % (0.5-1.5); BG OXYGEN SATURATION 89.8 % (94.0-98.0); BG OXYHEMOGLOBIN 88.5 % (94.0-98.0); BG PCO2 34.7 mmHg (35.0-48.0); BG PH 7.385 (7.350-7.450); BG PO2 61.8 mmHg (83.0-108.0); BG SAMPLE SITE RIGHT RADIAL; BG TOTAL HEMOGLOBIN 12.4 g/dL (13.5-17.5); BG VENT MODE ROOM AIR
[2025-03-15] MEDS ORDERED: LOSA50TA41 PO (16:51)
[2025-03-16] VITALS (10 sets, daily range): BP systolic 95–126; BP diastolic 61–82; PULSE 63–88; RESP 18–19; TEMP 36.1–36.4; O2SAT 92–100
[2025-03-16 07:22] LABS: HEMATOCRIT. 34.9 % (42.0-52.0); HEMOGLOBIN. 10.9 g/dL (14.0-18.0); MEAN CORPUSCULAR HEMOGLOBIN 25.4 pg (28.0-32.0); MEAN CORPUSCULAR HGB CONC 31.2 g/dL (31.0-37.0); MEAN CORPUSCULAR VOLUME 81.6 fL (80.0-94.0); MEAN PLATELET VOLUME 8.7 fl (7.4-10.4); PLATELET 210 x1000/uL (130-400); RED BLOOD CELL COUNT 4.28 mill/uL (4.7-6.1); RED CELL DISTRIBUTION WIDTH 21.7 % (11.6-14.6)
[2025-03-16 07:34] LABS: POTASSIUM 3.5 mEq/L (3.5-5.1)
[2025-03-16 07:40] LABS: CREATININE 2.1 mg/dL (0.6-1.3); DIFFERENTIAL COMMENT 1
[2025-03-16 11:43] LABS: PLATELET ESTIMATE NORMAL
[2025-03-16 11:44] LABS: ANISOCYTOSIS 3+; HYPOCHROMASIA 1+
[2025-03-16] MEDS: GUAIFENESIN/DM 600MG/30MG ER TAB 12HR PO PRN (12:14)
[2025-03-16] MEDS: BENZONATATE 100MG CAPSULE PO PRN (21:40)
[2025-03-17] VITALS (9 sets, daily range): BP systolic 100–116; BP diastolic 65–77; PULSE 64–84; RESP 16–20; TEMP 36.1–36.7; O2SAT 95–100
[2025-03-17] MEDS: FAMOTIDINE 20MG/2ML VIAL IV SCH (09:50)
[2025-03-17 10:07] LABS: CALCIUM 9.3 mg/dL (8.7-10.4)
[2025-03-17 10:11] LABS: CREATININE 1.8 mg/dL (0.6-1.3)
[2025-03-17] MEDS ORDERED: LOSA25TA26 PO (11:38)
[2025-03-17] MEDS ORDERED: BENZ100C86 PO (11:38)
[2025-03-17] MEDS ORDERED: AZIT250T12 PO (11:38)
[2025-03-17] MEDS ORDERED: FURO40TA5 MT (11:38)
[2025-03-17] MEDS ORDERED: GUAI-741 PO (11:38)
[2025-03-18] VITALS: BP 123/69; PULSE 85; RESP 18; TEMP 36.5; O2SAT 95
[2025-03-18 01:00] VITALS: PULSE 74; RESP 18
[2025-03-18 04:00] VITALS: BP 113/70; PULSE 73; RESP 19; TEMP 36.3; O2SAT 92
[2025-03-18 08:00] VITALS: BP 100/55; PULSE 67; RESP 20; TEMP 36.7; O2SAT 97
[2025-03-18 09:22] VITALS: BP 117/86; PULSE 67; TEMP 97.5; O2SAT 95
== END 2025-03-18 10:48 | disposition home or self-care (01) | DRG 280 ==
LOC: ER 05:03 → 5WST 08:25 → EDBEDREQ 08:29 → EDBEDREQTM 08:29 → ENRESERV 08:49
PROVIDERS: ADMIT Internal Medicine; ATTEND Internal Medicine
DX: I13.0 Hypertensive heart and chronic kidney disease with heart failure and stage 1 through stage 4 chronic kidney disease, or unspecified chronic kidney disease (principal); I50.23 Acute on chronic systolic (congestive) heart failure; I21.4 Non-ST elevation (NSTEMI) myocardial infarction; E87.1 Hypo-osmolality and hyponatremia; N17.9 Acute kidney failure, unspecified; N18.4 Chronic kidney disease, stage 4 (severe); E87.20 Acidosis, unspecified; Z59.00 Homelessness unspecified; E11.22 Type 2 diabetes mellitus with diabetic chronic kidney disease; I44.7 Left bundle-branch block, unspecified; K76.0 Fatty (change of) liver, not elsewhere classified; J44.89 Other specified chronic obstructive pulmonary disease; D64.9 Anemia, unspecified; F15.10 Other stimulant abuse, uncomplicated; E78.5 Hyperlipidemia, unspecified; Z79.82 Long term (current) use of aspirin; Z79.899 Other long term (current) drug therapy; I25.2 Old myocardial infarction; Z91.148 Patient's other noncompliance with medication regimen for other reason
CPT/HCPCS: 36415; 36600; 71045; 76770; 78582; 80048; 80076; 80305; 81003; 82375; 82550; 82553; 82805; 83735; 83880; 84100; 84145; 84439; 84443; 84480; 84484; 85025; 85379; 93005; 93880; 93970; 94070; 94640; 94664; 96372; 96374; 96375; 98960; 99291; A9558; J0456; J0696; J1308; J1650; J1940; J2270; J2405; J2470

== ENCOUNTER 2025-04-11 21:13 | Inpatient (IN) | payer BC, MEDICAID ==
[~2025-04-11] VITALS: Ht 170.2 cm; Wt 89.8 kg
[~2025-04-11 21:13] MED LIST changes: -AMI2 PO; +AZIT250T12 PO; +BENZ100C86 PO; -FURO80TA3 PO; +GUAI-741 PO; +LOSA25TA26 PO
[2025-04-11] MEDS: FUROSEMIDE 40MG/4ML VIAL IV ONE (21:51)
[2025-04-11] MEDS: MORPHINE SULFATE 4 MG/ML INJ (FOR IV/IM USE) IV STA (21:51)
[2025-04-11] MEDS: NITROGLYCERIN 0.4MG TABLET SL SL PRN (21:52)
[2025-04-11 21:58] LABS: HEMATOCRIT. 37.2 % (42.0-52.0); HEMOGLOBIN. 11.5 g/dL (14.0-18.0); MEAN PLATELET VOLUME 8.4 fl (7.4-10.4); PLATELET 279 x1000/uL (130-400); RED BLOOD CELL COUNT 4.46 mill/uL (4.7-6.1); RED CELL DISTRIBUTION WIDTH 21.7 % (11.6-14.6)
[2025-04-11 22:09] LABS: INR 1.3
[2025-04-11 22:21] LABS: EOSINOPHILS % MANUAL 6.0 % (0.0-5.0); ETHANOL BLOOD < 10 mg/dL (<10); LYMPHOCYTES % MANUAL 16.0 % (20.0-50.0); MONOCYTES % MANUAL 17.0 % (2.0-8.0); NEUTROPHILS % MANUAL 61.0 % (45.0-75.0); PLATELET ESTIMATE NORMAL; UREA NITROGEN BLOOD 37 mg/dL (9-23)
[2025-04-11 22:34] LABS: CREATININE 2.4 mg/dL (0.6-1.3)
[2025-04-11 22:35] LABS: TROPONIN I HIGH SENSITIVITY 166 ng/L (3.0-53)
[2025-04-11 23:40] VITALS: BP_SYST 124; BP_DIAS 81; BP_DIAS 84; PULSE 78; RESP 18; RESP 19; TEMP 36.9; TEMP 37; O2SAT 100
[2025-04-11] MEDS ORDERED: GUAIFENESIN 200MG/10ML SUGAR FREE UDC PO PRN (23:45)
[2025-04-11] MEDS ORDERED: IPRATROPIUM/ALBUTEROL 0.5-3(2.5)MG/3ML NEB HHN PRN (23:45)
[2025-04-11] MEDS ORDERED: MAGNESIUM/ALUMINUM HYDROXIDE/SIMETHICONE 30ML UDC PO PRN (23:45)
[2025-04-11] MEDS ORDERED: CLONIDINE 0.1MG TABLET PO PRN (23:45)
[2025-04-11] MEDS ORDERED: DOCUSATE SODIUM 100MG CAPSULE PO PRN (23:45)
[2025-04-11] MEDS ORDERED: ACETAMINOPHEN 325MG TABLET PO PRN ×2 (23:45)
[2025-04-11] MEDS ORDERED: DEXTROSE 50% WATER 50ML SYRINGE IV PRN (23:45)
[2025-04-12 00:18] LABS: *AMPHETAMINES SCREEN URINE NEGATIVE (NEGATIVE); *BARBITURATES SCREEN URINE NEGATIVE (NEGATIVE); *BENZODIAZEPINES SCREEN URINE NEGATIVE (NEGATIVE); *COCAINE SCREEN URINE NEGATIVE (NEGATIVE); METHADONE URINE SCREEN NEGATIVE (NEGATIVE)
[2025-04-12 00:19] LABS: CANNABINOID URINE SCREEN NEGATIVE (NEGATIVE); ECSTASY MDMA SCREEN URINE NEGATIVE (NEGATIVE); OPIATES URINE SCREEN NEGATIVE (NEGATIVE); PHENCYCLIDINE URINE SCREEN NEGATIVE (NEGATIVE)
[2025-04-12 01:23] LABS: TROPONIN I HIGH SENSITIVITY 181 ng/L (3.0-53)
[2025-04-12] MEDS ORDERED: FERR325T30 PO (02:19)
[2025-04-12] MEDS ORDERED: LOSA50TA41 PO (02:19)
[2025-04-12] MEDS ORDERED: SPIR25TA6 PO (02:19)
[2025-04-12 04:00] VITALS: BP 116/99; PULSE 72; RESP 19; TEMP 36.5; O2SAT 100
[2025-04-12] MEDS: BLOOD SUGAR DIAGNOSTIC STRIP TEST SCH (06:51)
[2025-04-12 08:00] VITALS: BP 124/87; PULSE 77; RESP 18; TEMP 36.6; O2SAT 100
[2025-04-12 08:10] LABS: HEMATOCRIT. 35.9 % (42.0-52.0); HEMOGLOBIN. 11.2 g/dL (14.0-18.0); MEAN PLATELET VOLUME 8.8 fl (7.4-10.4); PLATELET 263 x1000/uL (130-400); RED BLOOD CELL COUNT 4.36 mill/uL (4.7-6.1); RED CELL DISTRIBUTION WIDTH 21.7 % (11.6-14.6)
[2025-04-12] MEDS: INSULIN LISPRO 100 UNITS/ML SUBCUT SCH (08:10)
[2025-04-12 08:28] LABS: T4 FREE 1.41 ng/dL (0.89-1.76)
[2025-04-12] MEDS: ENOXAPARIN 40MG/0.4ML SYR SUBCUT SCH (08:58)
[2025-04-12] MEDS: ASPIRIN 81MG EC TABLET PO SCH (08:59)
[2025-04-12] MEDS: PANTOPRAZOLE 40MG DR TABLET PO SCH (08:59)
[2025-04-12] MEDS: LOSARTAN 50 MG TABLET PO SCH (09:00)
[2025-04-12] MEDS: FUROSEMIDE 40MG/4ML VIAL IVP SCH ×2 (09:00→17:55)
[2025-04-12 09:03] LABS: HEPATITIS C AB NON REACTIVE (Neg) (Negative)
[2025-04-12 11:51] VITALS: BP 125/82; PULSE 77; RESP 20; TEMP 36.1; O2SAT 99
[2025-04-12 12:11] LABS: BASOPHILS % MANUAL 2.0 % (0.0-2.0); EOSINOPHILS % MANUAL 4.0 % (0.0-5.0); LYMPHOCYTES % MANUAL 18.0 % (20.0-50.0); MONOCYTES % MANUAL 19.0 % (2.0-8.0); NEUTROPHILS % MANUAL 57.0 % (45.0-75.0); PLATELET ESTIMATE NORMAL
[2025-04-12 16:00] VITALS: BP 117/71; PULSE 74; RESP 20; TEMP 36.6; O2SAT 100
[2025-04-12] MEDS: FERROUS SULFATE 325MG TABLET PO SCH (17:59)
[2025-04-12] MEDS: ASCORBIC ACID 250 MG TABLET PO SCH (18:00)
[2025-04-12 19:51] LABS: TROPONIN I HIGH SENSITIVITY 154 ng/L (3.0-53)
[2025-04-12] MEDS: ATORVASTATIN CALCIUM 40MG TABLET PO SCH (20:59)
[2025-04-12] MEDS: TRAZODONE HCL 50MG TABLET PO PRN (21:00)
[2025-04-12 23:09] VITALS: BP 117/75; PULSE 73; RESP 18; TEMP 36.5
[2025-04-13 04:00] VITALS: BP 104/68; PULSE 71; RESP 18; TEMP 36.4; O2SAT 100
[2025-04-13 08:00] VITALS: BP 128/82; PULSE 74; RESP 14; TEMP 36.2; O2SAT 96
[2025-04-13 09:16] LABS: HEMATOCRIT. 39.3 % (42.0-52.0); HEMOGLOBIN. 12.2 g/dL (14.0-18.0); MEAN PLATELET VOLUME 8.8 fl (7.4-10.4); PLATELET 274 x1000/uL (130-400); RED BLOOD CELL COUNT 4.79 mill/uL (4.7-6.1); RED CELL DISTRIBUTION WIDTH 21.1 % (11.6-14.6)
[2025-04-13 09:50] LABS: CREATININE 2.3 mg/dL (0.6-1.3)
[2025-04-13 09:51] LABS: UREA NITROGEN BLOOD 34.0 mg/dL (9-23)
[2025-04-13 11:49] LABS: BAND% 1.0 % (1.0-6.0); EOSINOPHILS % MANUAL 9.0 % (0.0-5.0); LYMPHOCYTES % MANUAL 14.0 % (20.0-50.0); MONOCYTES % MANUAL 19.0 % (2.0-8.0); NEUTROPHILS % MANUAL 57.0 % (45.0-75.0); PLATELET ESTIMATE NORMAL
[2025-04-13 12:00] VITALS: BP 109/75; PULSE 69; RESP 12; TEMP 36.1; O2SAT 97
[2025-04-13] MEDS ORDERED: FURO-151 MT (13:27)
[2025-04-13] MEDS ORDERED: ATOR40TA70 MT (13:27)
[2025-04-13] MEDS ORDERED: ASPI-1497 MT (13:27)
[2025-04-13] MEDS ORDERED: LOSA50TA41 MT (13:27)
[2025-04-13] MEDS ORDERED: EMPA10TA MT (13:27)
[2025-04-13] MEDS ORDERED: CARV3.1242 MT (13:27)
[2025-04-13 14:15] VITALS: BP 109/75; PULSE 69; TEMP 97; O2SAT 97
[2025-04-13 16:00] VITALS: BP 110/75; PULSE 73; RESP 14; TEMP 36.2; O2SAT 97
== END 2025-04-13 17:55 | disposition home or self-care (01) | DRG 280 ==
LOC: ER 21:13 → 7WST 23:07 → EDBEDREQTM 23:10 → EDBEDREQ 23:10 → ENRESERV 23:15
PROVIDERS: ADMIT Internal Medicine; ATTEND Internal Medicine
DX: I13.0 Hypertensive heart and chronic kidney disease with heart failure and stage 1 through stage 4 chronic kidney disease, or unspecified chronic kidney disease (principal); I50.23 Acute on chronic systolic (congestive) heart failure; I21.A1 Myocardial infarction type 2; N17.9 Acute kidney failure, unspecified; I25.10 Atherosclerotic heart disease of native coronary artery without angina pectoris; E78.5 Hyperlipidemia, unspecified; I34.0 Nonrheumatic mitral (valve) insufficiency; N18.32 Chronic kidney disease, stage 3b; E11.22 Type 2 diabetes mellitus with diabetic chronic kidney disease; F19.90 Other psychoactive substance use, unspecified, uncomplicated; D50.9 Iron deficiency anemia, unspecified; T50.905A Adverse effect of unspecified drugs, medicaments and biological substances, initial encounter; Z79.84 Long term (current) use of oral hypoglycemic drugs; Z79.899 Other long term (current) drug therapy; Z91.148 Patient's other noncompliance with medication regimen for other reason; Y92.89 Other specified places as the place of occurrence of the external cause
CPT/HCPCS: 36415; 71045; 76700; 80048; 80305; 80320; 82962; 83540; 83550; 83880; 84439; 84443; 84484; 85025; 86705; 87340; 93005; 96374; 96375; 99285; A4606; J1650; J1940; J2270; G0480

== ENCOUNTER 2025-06-05 07:05 | Inpatient (IN) | payer BC, MEDICAID ==
[2025-06-05] VITALS (7 sets, daily range): BP systolic 96–123; BP diastolic 50–90; PULSE 81–88; RESP 17–20; TEMP 31.1–36.7; O2SAT 95–99
[~2025-06-05] VITALS: Ht 170.2 cm; Wt 108.9 kg
[~2025-06-05 07:05] MED LIST changes: +AMI2 PO; -ASPI-1160 PO; +ASPI-1406 PO; -ATOR40TA70 PO; -AZIT250T12 PO; -BENZ100C86 PO; -CYAN-50 MT; -EMPA10TA PO; -FAMO-135 MT; +FERR-63 PO; -FURO40TA5 MT; +FURO40TA5 PO; -GUAI-741 PO; +LIP40 PO; -LOSA25TA26 PO; -POTA-205 MT; +POTA-354 MT; +TAMS-54 PO
[2025-06-05 08:07] LABS: HEMATOCRIT. 35.6 % (42.0-52.0); HEMOGLOBIN. 10.9 g/dL (14.0-18.0); MEAN PLATELET VOLUME 9.1 fl (7.4-10.4); PLATELET 248 x1000/uL (130-400); RED BLOOD CELL COUNT 4.23 mill/uL (4.7-6.1); RED CELL DISTRIBUTION WIDTH 22.7 % (11.6-14.6)
[2025-06-05 08:37] LABS: BAND% 3.0 % (1.0-6.0); EOSINOPHILS % MANUAL 1.0 % (0.0-5.0); LYMPHOCYTES % MANUAL 17.0 % (20.0-50.0); METAMYELOCYTES % 1.0 % (0-0); MONOCYTES % MANUAL 14.0 % (2.0-8.0); NEUTROPHILS % MANUAL 64.0 % (45.0-75.0); PLATELET ESTIMATE NORMAL
[2025-06-05 08:38] LABS: CREATININE 2.2 mg/dL (0.6-1.3); UREA NITROGEN BLOOD 41 mg/dL (9-23)
[2025-06-05] MEDS: MORPHINE SULFATE 4 MG/ML INJ (FOR IV/IM USE) IV ONE (08:51)
[2025-06-05 08:56] LABS: TROPONIN I HIGH SENSITIVITY 192 ng/L (3.0-53)
[2025-06-05] MEDS ORDERED: MORPHINE SULFATE 2 MG/ML INJ (NOT FOR IM USE) IV PRN (13:00)
[2025-06-05] MEDS ORDERED: ACETAMINOPHEN 325MG TABLET PO PRN ×2 (13:00)
[2025-06-05] MEDS ORDERED: DIPHENHYDRAMINE 50MG/ML VIAL IV PRN (13:00)
[2025-06-05] MEDS ORDERED: CLONIDINE 0.1MG TABLET PO PRN (13:00)
[2025-06-05] MEDS ORDERED: ZOLPIDEM TARTRATE 5MG TABLET PO PRN (13:00)
[2025-06-05] MEDS ORDERED: IPRATROPIUM/ALBUTEROL 0.5-3(2.5)MG/3ML NEB HHN PRN (13:00)
[2025-06-05] MEDS: ONDANSETRON HCL 4MG/2ML INJ IV PRN (13:36)
[2025-06-05] MEDS: MORPHINE SULFATE 2 MG/ML INJ (NOT FOR IM USE) IV PRN (13:37)
[2025-06-05] MEDS: SODIUM CHLORIDE 0.9% 3ML FLUSH IVF SCH (13:42)
[2025-06-05] MEDS: ENOXAPARIN 40MG/0.4ML SYR SUBCUT SCH (15:30)
[2025-06-05] MEDS: CARVEDILOL 3.125 MG TABLET PO SCH (20:30)
[2025-06-05] MEDS: ATORVASTATIN CALCIUM 40MG TABLET PO SCH (20:31)
[2025-06-05] MEDS: FAMOTIDINE 20MG TABLET PO SCH (20:31)
[2025-06-05 21:33] LABS: CLARITY URINE CLEAR (CLEAR); COLOR URINE DARK YELLOW (YELLOW); GLUCOSE URINE NEGATIVE (NEGATIVE); KETONES URINE TRACE (NEGATIVE); LEUKOCYTE ESTERASE URINE TRACE (NEGATIVE); NITRITE URINE NEGATIVE (NEGATIVE); OCCULT BLOOD URINE 3+ (NEGATIVE); PH URINE 5.5 (4.5-8.0); PROTEIN URINE 3+ (NEGATIVE); SPECIFIC GRAVITY URINE 1.022 (1.005-1.030); UROBILINOGEN URINE 1.0 E.U./dL (0.2-1.0)
[2025-06-05 21:46] LABS: SQUAMOUS EPITHELIAL CELL URINE 1+ /lpf (RARE/1+)
[2025-06-05 21:47] LABS: BACTERIA URINE 1+; CREATININE URINE RANDOM 213.3 mg/dL
[2025-06-05 21:49] LABS: UREA NITROGEN URINE RANDOM 955 mg/dL
[2025-06-05 22:05] LABS: SODIUM URINE RANDOM < 10 mEq/L
[2025-06-06] VITALS: BP 115/90; PULSE 89; RESP 19; TEMP 36.5; O2SAT 95
[2025-06-06 04:00] VITALS: BP 123/85; PULSE 82; RESP 18; TEMP 36.1; O2SAT 95
[2025-06-06 08:00] VITALS: BP 117/80; PULSE 80; RESP 18; TEMP 36.4; O2SAT 98
[2025-06-06 08:22] LABS: CREATININE 2.1 mg/dL (0.6-1.3); UREA NITROGEN BLOOD 44 mg/dL (9-23)
[2025-06-06 08:24] LABS: PHOSPHORUS 3.2 mg/dL (2.5-4.9)
[2025-06-06] MEDS ORDERED: PANTOPRAZOLE SODIUM 40 MG/VIAL IV SCH (09:00)
[2025-06-06] MEDS: AMIODARONE 200MG TABLET PO SCH (09:51)
[2025-06-06] MEDS: ASPIRIN 81MG EC TABLET PO SCH (09:51)
[2025-06-06] MEDS: FUROSEMIDE 40MG/4ML VIAL IVP SCH (09:52)
[2025-06-06 12:00] VITALS: BP 111/83; PULSE 84; RESP 18; TEMP 36.5; O2SAT 97
[2025-06-06 16:00] VITALS: BP 104/77; PULSE 76; RESP 18; TEMP 36.6; O2SAT 96
[2025-06-06] MEDS: BISACODYL 5MG TABLET PO SCH (19:01)
[2025-06-06 20:00] VITALS: BP 105/60; PULSE 72; RESP 18; TEMP 36.3; O2SAT 97
[2025-06-06] MEDS: MAGNESIUM/ALUMINUM HYDROXIDE/SIMETHICONE 30ML UDC PO PRN (21:39)
[2025-06-07] VITALS: BP 110/66; PULSE 76; RESP 19; TEMP 36.2; O2SAT 98
[2025-06-07 04:00] VITALS: BP 103/63; PULSE 71; RESP 18; TEMP 36.7; O2SAT 97
[2025-06-07 08:00] VITALS: BP 100/67; PULSE 75; RESP 19; TEMP 36.5; O2SAT 98
[2025-06-07 12:00] VITALS: BP 101/63; PULSE 73; RESP 18; TEMP 36.6; O2SAT 100
[2025-06-07 15:05] VITALS: BP 101/68; PULSE 80; RESP 18; TEMP 98
== END 2025-06-07 15:20 | disposition home or self-care (01) | DRG 291 ==
LOC: ER 07:05 → 8WST 08:47 → EDBEDREQTM 08:55 → EDBEDREQ 08:55
PROVIDERS: ADMIT Internal Medicine; ATTEND Internal Medicine
DX: I13.0 Hypertensive heart and chronic kidney disease with heart failure and stage 1 through stage 4 chronic kidney disease, or unspecified chronic kidney disease (principal); I50.23 Acute on chronic systolic (congestive) heart failure; N17.9 Acute kidney failure, unspecified; Z59.01 Sheltered homelessness; I47.20 Ventricular tachycardia, unspecified; I42.0 Dilated cardiomyopathy; N40.1 Benign prostatic hyperplasia with lower urinary tract symptoms; R39.11 Hesitancy of micturition; I34.0 Nonrheumatic mitral (valve) insufficiency; D64.9 Anemia, unspecified; K59.00 Constipation, unspecified; E66.9 Obesity, unspecified; I44.7 Left bundle-branch block, unspecified; E78.00 Pure hypercholesterolemia, unspecified; E11.22 Type 2 diabetes mellitus with diabetic chronic kidney disease; J45.909 Unspecified asthma, uncomplicated; N18.30 Chronic kidney disease, stage 3 unspecified; Z68.36 Body mass index [BMI] 36.0-36.9, adult; Z91.148 Patient's other noncompliance with medication regimen for other reason; Z79.82 Long term (current) use of aspirin; Z79.899 Other long term (current) drug therapy
CPT/HCPCS: 36415; 71045; 74018; 76705; 80048; 81003; 82570; 83735; 83930; 83935; 84100; 84300; 84484; 84540; 85025; 93005; 99285; J1650; J1938; J2270; J2405

== ENCOUNTER 2025-06-26 01:21 | Inpatient (IN) | payer BC, MEDICAID ==
[~2025-06-26] VITALS: Ht 170.2 cm; Wt 99.5 kg
[2025-06-26] VITALS (12 sets, daily range): BP systolic 76–120; BP diastolic 53–77; PULSE 80–104; RESP 17–35; TEMP 36.1–38.1416; O2SAT 90–100
[~2025-06-26 01:21] MED LIST changes: -AMI2 PO; -COR3 PO; -FERR-63 PO; -FURO40TA5 PO; +FURO80TA87 MT; +MAGN400T29 MT; +METO25TA6 PO; +POTA-204 PO; -POTA-354 MT; -TAMS-54 PO
[2025-06-26] MEDS: ONDANSETRON HCL 4MG/2ML INJ IV ONE (01:35)
[2025-06-26] MEDS: FUROSEMIDE 40MG/4ML VIAL IV ONE (01:35)
[2025-06-26 01:49] LABS: BG BASE EXCESS -4.9 mmol/L (-2.0-3.0); BG CARBOXYHEMOGLOBIN 1.3 % (0.5-1.5); BG DEOXYHEMOGLOBIN 0.3 % (0.0-5.0); BG FRACTION INSPIRED OXYGEN 100; BG HCO3 ACT 16.9 mmol/L (21.0-28.0); BG METHEMOGLOBIN 0.3 % (0.5-1.5); BG OXYGEN SATURATION 99.7 % (94.0-98.0); BG OXYHEMOGLOBIN 98.1 % (94.0-98.0); BG PCO2 23.6 mmHg (35.0-48.0); BG PH 7.474 (7.350-7.450); BG PO2 393.5 mmHg (83.0-108.0); BG SAMPLE SITE RIGHT RADIAL; BG TOTAL HEMOGLOBIN 12.8 g/dL (13.5-17.5); BG VENT MODE MASK - BIPAP; BG VENT RATE 16.0 set
[2025-06-26 02:07] LABS: BASOPHILS % 0.8 % (0.0-2.0); EOSINOPHILS % 1.0 % (0.0-5.0); HEMATOCRIT. 39.5 % (42.0-52.0); HEMOGLOBIN. 11.9 g/dL (14.0-18.0); LYMPHOCYTES % 9.3 % (20.0-50.0); MEAN PLATELET VOLUME 9.4 fl (7.4-10.4); MONOCYTES % 10.6 % (2.0-8.0); NEUTROPHILS % 78.3 % (40.0-76.0); PLATELET 197 x1000/uL (130-400); RED BLOOD CELL COUNT 4.88 mill/uL (4.7-6.1); RED CELL DISTRIBUTION WIDTH 21.7 % (11.6-14.6)
[2025-06-26] MEDS: CEFTRIAXONE 1GM/50ML 50 ML IV ONE (02:18)
[2025-06-26 03:58] LABS: INR 1.4
[2025-06-26 04:02] LABS: UREA NITROGEN BLOOD 46 mg/dL (9-23)
[2025-06-26 04:03] LABS: ASPARTATE AMINOTRANSFERASE 30 IU/L (<34)
[2025-06-26 04:04] LABS: BILIRUBIN DIRECT 2.0 mg/dL (<=3.0); BILIRUBIN TOTAL 3.3 mg/dL (0.1-1.0); CREATININE 3.5 mg/dL (0.6-1.3); PROTEIN TOTAL 7.0 g/dL (6.0-8.3)
[2025-06-26 04:05] LABS: TROPONIN I HIGH SENSITIVITY 169 ng/L (3.0-53)
[2025-06-26] MEDS ORDERED: ONDANSETRON HCL 4MG/2ML INJ IV PRN (07:15)
[2025-06-26] MEDS ORDERED: CLONIDINE 0.1MG TABLET PO PRN (07:15)
[2025-06-26] MEDS ORDERED: DOCUSATE SODIUM 100MG CAPSULE PO PRN (07:15)
[2025-06-26] MEDS ORDERED: ACETAMINOPHEN 325MG TABLET PO PRN (07:15)
[2025-06-26] MEDS ORDERED: IPRATROPIUM/ALBUTEROL 0.5-3(2.5)MG/3ML NEB HHN PRN (07:15)
[2025-06-26] MEDS: FUROSEMIDE 100MG/10ML VIAL IVP SCH (09:52)
[2025-06-26] MEDS: ACETAMINOPHEN 325MG TABLET PO PRN (09:53)
[2025-06-26] MEDS: TAMSULOSIN HCL 0.4MG SR CAPSULE PO SCH (11:00)
[2025-06-26] MEDS ORDERED: NALOXONE HCL 0.4MG/ML VIAL IV PRN (11:45)
[2025-06-26] MEDS: MORPHINE SULFATE 4 MG/ML INJ (FOR IV/IM USE) IV PRN (11:56)
[2025-06-26] MEDS: MIDODRINE HCL 5MG TABLET PO SCH ×3 (12:09→22:08)
[2025-06-26] MEDS: PIPERACILLIN/TAZO 3.375G/50ML 50 ML IV SCH (12:28)
[2025-06-26 12:29] LABS: TROPONIN I HIGH SENSITIVITY 180 ng/L (3.0-53)
[2025-06-26 12:31] LABS: CREATININE 3.4 mg/dL (0.6-1.3); UREA NITROGEN BLOOD 43 mg/dL (9-23)
[2025-06-26 12:32] LABS: ETHANOL BLOOD < 10 mg/dL (<10)
[2025-06-26 12:33] LABS: ASPARTATE AMINOTRANSFERASE 32 IU/L (<34); PHOSPHORUS 4.2 mg/dL (2.5-4.9)
[2025-06-26 12:34] LABS: BILIRUBIN TOTAL 3.9 mg/dL (0.1-1.0); PROTEIN TOTAL 6.7 g/dL (6.0-8.3)
[2025-06-26 13:11] LABS: HEPATITIS A AB IGM NEGATIVE (Negative)
[2025-06-26 13:12] LABS: HEPATITIS B CORE AB IGM NEGATIVE (Negative); HEPATITIS C AB NON REACTIVE (Neg) (Negative)
[2025-06-26] MEDS: AZITHROMYCIN 500MG/250ML 250 ML IV SCH (13:44)
[2025-06-26 14:07] LABS: CLARITY URINE CLEAR (CLEAR); COLOR URINE DARK YELLOW (YELLOW); GLUCOSE URINE NEGATIVE (NEGATIVE); KETONES URINE NEGATIVE (NEGATIVE); LEUKOCYTE ESTERASE URINE NEGATIVE (NEGATIVE); NITRITE URINE NEGATIVE (NEGATIVE); OCCULT BLOOD URINE NEGATIVE (NEGATIVE); PH URINE 5.0 (4.5-8.0); PROTEIN URINE TRACE (NEGATIVE); SPECIFIC GRAVITY URINE 1.010 (1.005-1.030); UROBILINOGEN URINE 0.2 E.U./dL (0.2-1.0)
[2025-06-26 14:29] LABS: FINE GRANULAR CASTS URINE 0-5 /lpf
[2025-06-26 14:30] LABS: WBC URINE 0-2 /hpf (0-2)
[2025-06-26 14:31] LABS: CALCIUM OXALATE CRYSTALS URINE 1+ /lpf; RBC URINE NONE SEEN /hpf (0-2)
[2025-06-26 14:32] LABS: *AMPHETAMINES SCREEN URINE PRESUMPTIVE POSITIVE (NEGATIVE); *BARBITURATES SCREEN URINE NEGATIVE (NEGATIVE); *BENZODIAZEPINES SCREEN URINE NEGATIVE (NEGATIVE); *COCAINE SCREEN URINE NEGATIVE (NEGATIVE); BACTERIA URINE NONE SEEN; METHADONE URINE SCREEN NEGATIVE (NEGATIVE); OPIATES URINE SCREEN NEGATIVE (NEGATIVE); SQUAMOUS EPITHELIAL CELL URINE FEW /lpf (RARE/1+)
[2025-06-26 14:33] LABS: CANNABINOID URINE SCREEN NEGATIVE (NEGATIVE); ECSTASY MDMA SCREEN URINE NEGATIVE (NEGATIVE); PHENCYCLIDINE URINE SCREEN NEGATIVE (NEGATIVE)
[2025-06-26 14:38] LABS: INFLUENZA TYPE A Presumptive Negative (Pres. Neg.); INFLUENZA TYPE B Presumptive Negative (Pres. Neg.)
[2025-06-26 14:39] LABS: RESPIRATORY SYNCYTIAL VIRUS Not Detected (Not Detectd)
[2025-06-26] MEDS ORDERED: FUROSEMIDE 40MG/4ML VIAL IVP SCH (17:15)
[2025-06-26] MEDS: FUROSEMIDE 40MG/4ML VIAL IVP SCH (18:37)
[2025-06-26] MEDS: ENOXAPARIN 40MG/0.4ML SYR SUBCUT SCH (20:57)
[2025-06-26] MEDS: FAMOTIDINE 20MG TABLET PO SCH (21:08)
[2025-06-26] MEDS: IPRATROPIUM/ALBUTEROL 0.5-3(2.5)MG/3ML NEB HHN SCH (21:18)
[2025-06-26] MEDS: SODIUM CHLORIDE 0.9% 100 ML IV ONE (22:09)
[2025-06-26 22:16] LABS: CREATINE KINASE MB FRACTION 3.2 ng/mL (0.5-3.6)
[2025-06-26 22:17] LABS: TROPONIN I HIGH SENSITIVITY 178.0 ng/L (3.0-53)
[2025-06-27] VITALS (13 sets, daily range): BP systolic 88–157; BP diastolic 51–95; PULSE 72–88; RESP 16–22; TEMP 36.2–37; O2SAT 91–98
[2025-06-27] MEDS: SODIUM CHLORIDE 0.9% 250 ML IV ONE (02:47)
[2025-06-27] MEDS: TRAMADOL 50MG TABLET PO NR (04:28)
[2025-06-27 06:11] LABS: HEMATOCRIT. 32.5 % (42.0-52.0); HEMOGLOBIN. 10.0 g/dL (14.0-18.0); MEAN PLATELET VOLUME 10.0 fl (7.4-10.4); PLATELET 165 x1000/uL (130-400); RED BLOOD CELL COUNT 4.05 mill/uL (4.7-6.1); RED CELL DISTRIBUTION WIDTH 20.1 % (11.6-14.6)
[2025-06-27 06:22] LABS: CREATINE KINASE MB FRACTION 3.2 ng/mL (0.5-3.6)
[2025-06-27 06:24] LABS: CREATININE 4.1 mg/dL (0.6-1.3)
[2025-06-27 06:25] LABS: TRIGLYCERIDE 69 mg/dL (0-150); UREA NITROGEN BLOOD 48 mg/dL (9-23)
[2025-06-27 06:26] LABS: ASPARTATE AMINOTRANSFERASE 28 IU/L (<34); LDL CHOLESTEROL 34 mg/dL (5-100); PROTEIN TOTAL 6.3 g/dL (6.0-8.3)
[2025-06-27 06:27] LABS: BILIRUBIN DIRECT 1.9 mg/dL (<=3.0); BILIRUBIN TOTAL 2.8 mg/dL (0.1-1.0); PHOSPHORUS 4.9 mg/dL (2.5-4.9); T4 FREE 1.60 ng/dL (0.89-1.76)
[2025-06-27 06:40] LABS: TROPONIN I HIGH SENSITIVITY 192 ng/L (3.0-53)
[2025-06-27] MEDS: FUROSEMIDE 100MG/10ML VIAL IVP SCH (09:49)
[2025-06-27] MEDS ORDERED: ENOXAPARIN 30MG/0.3ML SYR SUBCUT SCH (10:00)
[2025-06-27 12:27] LABS: BAND% 8.0 % (1.0-6.0); EOSINOPHILS % MANUAL 1.0 % (0.0-5.0); LYMPHOCYTES % MANUAL 1.0 % (20.0-50.0); MONOCYTES % MANUAL 7.0 % (2.0-8.0); NEUTROPHILS % MANUAL 83.0 % (45.0-75.0); PLATELET ESTIMATE NORMAL
[2025-06-27] MEDS ORDERED: DEXTROSE 50% WATER 50ML SYRINGE IV PRN (17:45)
[2025-06-27] MEDS: INSULIN LISPRO 100 UNITS/ML SUBCUT SCH (18:00)
[2025-06-27] MEDS: BLOOD SUGAR DIAGNOSTIC STRIP TEST SCH (21:00)
[2025-06-27] MEDS: VANCOMYCIN 2GM PMX (XELLIA) 400 ML IV ONE (21:59)
[2025-06-28] VITALS (11 sets, daily range): BP systolic 93–130; BP diastolic 56–88; PULSE 80–96; RESP 1–22; TEMP 36.5–36.9; O2SAT 91–100
[2025-06-28] MEDS: HYDROCODONE/ACETAMINOPHEN 5/325MG TABLET PO PRN (00:50)
[2025-06-28 07:20] LABS: HEMATOCRIT. 32.3 % (42.0-52.0); HEMOGLOBIN. 10.1 g/dL (14.0-18.0); MEAN PLATELET VOLUME 9.6 fl (7.4-10.4); PLATELET 157 x1000/uL (130-400); RED BLOOD CELL COUNT 3.98 mill/uL (4.7-6.1); RED CELL DISTRIBUTION WIDTH 21.2 % (11.6-14.6)
[2025-06-28 07:26] LABS: CREATININE 3.8 mg/dL (0.6-1.3)
[2025-06-28 07:28] LABS: UREA NITROGEN BLOOD 60 mg/dL (9-23)
[2025-06-28 07:29] LABS: PHOSPHORUS 4.3 mg/dL (2.5-4.9)
[2025-06-28] MEDS: AZITHROMYCIN 500 MG TABLET PO SCH (09:21)
[2025-06-28] MEDS: GUAIFENESIN 200MG/10ML SUGAR FREE UDC PO PRN (11:24)
[2025-06-28 21:08] LABS: BAND% 5.0 % (1.0-6.0); EOSINOPHILS % MANUAL 3.0 % (0.0-5.0); LYMPHOCYTES % MANUAL 6.0 % (20.0-50.0); MONOCYTES % MANUAL 8.0 % (2.0-8.0); NEUTROPHILS % MANUAL 78.0 % (45.0-75.0); PLATELET ESTIMATE NORMAL
[2025-06-29] VITALS (14 sets, daily range): BP systolic 91–124; BP diastolic 50–94; PULSE 80–104; RESP 14–30; TEMP 36.5–37.1; O2SAT 86–100
[2025-06-29 06:40] LABS: CREATININE 3.6 mg/dL (0.6-1.3)
[2025-06-29 06:41] LABS: UREA NITROGEN BLOOD 44.0 mg/dL (9-23)
[2025-06-29] MEDS: VANCOMYCIN 1.25GM/250ML 250 ML IV SCH (13:47)
[2025-06-29] MEDS: MIDODRINE HCL 5MG TABLET PO SCH (13:54)
[2025-06-29] MEDS: ENOXAPARIN 30MG/0.3ML SYR SUBCUT SCH (21:05)
[2025-06-30] VITALS (21 sets, daily range): BP systolic 89–121; BP diastolic 68–83; PULSE 85–95; RESP 12–22; TEMP 36.1–37.1; O2SAT 91–100
[2025-06-30 05:41] LABS: CREATININE 2.8 mg/dL (0.6-1.3); UREA NITROGEN BLOOD 39.0 mg/dL (9-23)
[2025-06-30 06:53] LABS: BASOPHILS % 1.4 % (0.0-2.0); EOSINOPHILS % 1.7 % (0.0-5.0); HEMATOCRIT. 33.4 % (42.0-52.0); HEMOGLOBIN. 10.4 g/dL (14.0-18.0); LYMPHOCYTES % 7.9 % (20.0-50.0); MEAN PLATELET VOLUME 9.8 fl (7.4-10.4); MONOCYTES % 14.4 % (2.0-8.0); NEUTROPHILS % 74.6 % (40.0-76.0); PLATELET 179 x1000/uL (130-400); RED BLOOD CELL COUNT 4.17 mill/uL (4.7-6.1); RED CELL DISTRIBUTION WIDTH 21.3 % (11.6-14.6)
[2025-06-30] MEDS: POTASSIUM CHLORIDE 20MEQ/PACKET PO NR ×2 (08:15→08:30)
[2025-06-30] MEDS ORDERED: POTASSIUM CHLORIDE 20MEQ/PACKET PO ONE (08:30)
[2025-06-30] MEDS ORDERED: POTASSIUM CHLORIDE 10MEQ TABLET SR PO SCH (09:00)
[2025-06-30] MEDS: POTASSIUM CHLORIDE 20MEQ/PACKET PO SCH ×2 (10:30→12:38)
[2025-07-01] VITALS (13 sets, daily range): BP systolic 84–131; BP diastolic 54–101; PULSE 88–101; RESP 12–26; TEMP 36.2–36.7; O2SAT 95–100
[2025-07-01 05:43] LABS: HEMATOCRIT. 34.9 % (42.0-52.0); HEMOGLOBIN. 10.7 g/dL (14.0-18.0); MEAN PLATELET VOLUME 9.4 fl (7.4-10.4); PLATELET 178 x1000/uL (130-400); RED BLOOD CELL COUNT 4.34 mill/uL (4.7-6.1); RED CELL DISTRIBUTION WIDTH 21.9 % (11.6-14.6)
[2025-07-01 05:54] LABS: CREATININE 2.3 mg/dL (0.6-1.3)
[2025-07-01 05:55] LABS: UREA NITROGEN BLOOD 33 mg/dL (9-23)
[2025-07-01] MEDS: POTASSIUM CHLORIDE 10MEQ TABLET SR PO SCH (08:18)
[2025-07-01] MEDS: VANCOMYCIN 1.5GM PMX (XELLIA) 300 ML IV SCH (12:44)
[2025-07-01 14:43] LABS: EOSINOPHILS % MANUAL 4.0 % (0.0-5.0); LYMPHOCYTES % MANUAL 10.0 % (20.0-50.0); MONOCYTES % MANUAL 14.0 % (2.0-8.0); NEUTROPHILS % MANUAL 72.0 % (45.0-75.0); PLATELET ESTIMATE NORMAL
[2025-07-01] MEDS: POTASSIUM CHLORIDE 20MEQ TABLET SR PO SCH (18:32)
[2025-07-01] MEDS: MORPHINE SULFATE 4 MG/ML INJ (FOR IV/IM USE) IV SCH (18:45)
[2025-07-02] VITALS (8 sets, daily range): BP systolic 97–113; BP diastolic 58–95; PULSE 85–102; RESP 11–22; TEMP 36.4–36.8; O2SAT 93–100
[2025-07-02 08:39] LABS: CREATININE 2.1 mg/dL (0.6-1.3); UREA NITROGEN BLOOD 32.0 mg/dL (9-23)
[2025-07-02] MEDS ORDERED: NALOXONE HCL 0.4MG/ML VIAL IV PRN (16:15)
[2025-07-02] MEDS: METOLAZONE 2.5MG TABLET PO SCH (17:54)
[2025-07-02] MEDS: MELATONIN 3MG TABLET PO SCH (23:10)
[2025-07-03] VITALS (7 sets, daily range): BP systolic 108–121; BP diastolic 67–97; PULSE 83–98; RESP 16–28; TEMP 36.4–36.9; O2SAT 92–98
[2025-07-03 07:17] LABS: CREATININE 2.0 mg/dL (0.6-1.3)
[2025-07-03 07:18] LABS: UREA NITROGEN BLOOD 34 mg/dL (9-23)
[2025-07-03] MEDS: HYDROCODONE/ACETAMINOPHEN 5/325MG TABLET PO PRN (11:38)
[2025-07-04] VITALS: BP 120/107; PULSE 98; RESP 16; TEMP 36.6; O2SAT 95
[2025-07-04 04:00] VITALS: PULSE 91; RESP 14; O2SAT 94
[2025-07-04 07:24] LABS: CREATININE 1.8 mg/dL (0.6-1.3); UREA NITROGEN BLOOD 34.0 mg/dL (9-23)
[2025-07-04 08:00] VITALS: BP 114/83; PULSE 94; RESP 13; TEMP 36.7; O2SAT 92
[2025-07-04] MEDS: POTASSIUM CHLORIDE 20MEQ TABLET SR PO NR (09:18)
[2025-07-04] MEDS: METOLAZONE 5MG TABLET PO SCH (09:18)
[2025-07-04 12:00] VITALS: BP 104/68; PULSE 92; RESP 18; TEMP 36.8; O2SAT 96
[2025-07-04] MEDS ORDERED: METO5TAB7 PO (14:20)
[2025-07-04] MEDS ORDERED: TAMS-54 PO (14:20)
[2025-07-04] MEDS ORDERED: POTA-189 PO (14:20)
[2025-07-04] MEDS ORDERED: AMOX1TAB16 MT (15:38)
[2025-07-04] MEDS: MORPHINE SULFATE 4 MG/ML INJ (FOR IV/IM USE) IV SCH (15:51)
[2025-07-04 16:00] VITALS: BP 99/73; PULSE 85; RESP 22; TEMP 36.6; O2SAT 95
[2025-07-04] MEDS: AMOXICILLIN/POTASSIUM CLAVULANATE 500/125MG TAB PO SCH (16:07)
[2025-07-04 20:00] VITALS: BP 101/67; PULSE 89; RESP 18; TEMP 36.8; O2SAT 94
[2025-07-05] VITALS (7 sets, daily range): BP systolic 96–138; BP diastolic 52–88; PULSE 81–90; RESP 12–22; TEMP 36.4–37; O2SAT 94–97
[2025-07-05 08:18] LABS: BASOPHILS % 1.8 % (0.0-2.0); EOSINOPHILS % 3.3 % (0.0-5.0); HEMATOCRIT. 32.8 % (42.0-52.0); HEMOGLOBIN. 10.2 g/dL (14.0-18.0); LYMPHOCYTES % 13.8 % (20.0-50.0); MEAN PLATELET VOLUME 8.6 fl (7.4-10.4); MONOCYTES % 13.7 % (2.0-8.0); NEUTROPHILS % 67.4 % (40.0-76.0); PLATELET 279 x1000/uL (130-400); RED BLOOD CELL COUNT 4.14 mill/uL (4.7-6.1); RED CELL DISTRIBUTION WIDTH 22.8 % (11.6-14.6)
[2025-07-05 08:39] LABS: CREATININE 2.0 mg/dL (0.6-1.3); UREA NITROGEN BLOOD 31.0 mg/dL (9-23)
[2025-07-05] MEDS: ENOXAPARIN 30MG/0.3ML SYR SUBCUT SCH (08:57)
[2025-07-05] MEDS: POTASSIUM CHLORIDE 20MEQ/PACKET PO SCH (10:01)
[2025-07-05] MEDS: AMIODARONE 200MG TABLET PO SCH (17:11)
[2025-07-05] MEDS: FAMOTIDINE 20MG TABLET PO SCH (21:28)
[2025-07-06] VITALS: BP 115/83; PULSE 93; RESP 21; TEMP 37; O2SAT 93
[2025-07-06 04:00] VITALS: BP 123/112; PULSE 88; RESP 17; TEMP 36.4; O2SAT 95
[2025-07-06 07:49] LABS: PLATELET 301 x1000/uL (130-400); RED BLOOD CELL COUNT 4.18 mill/uL (4.7-6.1); RED CELL DISTRIBUTION WIDTH 22.7 % (11.6-14.6)
[2025-07-06 08:00] VITALS: BP 113/69; PULSE 83; RESP 20; TEMP 36.4; O2SAT 100
[2025-07-06 08:00] LABS: CREATININE 1.9 mg/dL (0.6-1.3); UREA NITROGEN BLOOD 30 mg/dL (9-23)
[2025-07-06 08:40] VITALS: PULSE 83
[2025-07-06] MEDS ORDERED: POTASSIUM CHLORIDE 20MEQ TABLET SR PO NR (09:15)
[2025-07-06] MEDS ORDERED: ASPI-1406 PO (15:16)
[2025-07-06] MEDS ORDERED: LIP40 MT (15:16)
[2025-07-06] MEDS ORDERED: METO25TA6 PO (15:17)
[2025-07-06] MEDS ORDERED: FURO80TA87 MT (15:17)
[2025-07-06] MEDS ORDERED: FUROSEMIDE 40MG/4ML VIAL IVP SCH (17:15)
== END 2025-07-06 15:14 | disposition home or self-care (01) | DRG 871 ==
LOC: ER 01:21 → 5EST 03:31 → EDBEDREQTM 03:44 → EDBEDREQ 03:44 → EDBEDREQSVC 03:44 → ENRESERV 04:01 → 3WST 07-02 13:09
PROVIDERS: ADMIT Internal Medicine; ATTEND Internal Medicine
PROC: 5A09357 Assistance with Respiratory Ventilation, Less than 24 Consecutive Hours, Continuous Positive Airway Pressure (ICD-10-PCS; principal; 2025-06-26)
PROC: 5A09357 Assistance with Respiratory Ventilation, Less than 24 Consecutive Hours, Continuous Positive Airway Pressure (ICD-10-PCS; 2025-06-30)
DX: A41.1 Sepsis due to other specified staphylococcus (principal); I50.23 Acute on chronic systolic (congestive) heart failure; J96.01 Acute respiratory failure with hypoxia; J15.8 Pneumonia due to other specified bacteria; E87.20 Acidosis, unspecified; I13.0 Hypertensive heart and chronic kidney disease with heart failure and stage 1 through stage 4 chronic kidney disease, or unspecified chronic kidney disease; N17.9 Acute kidney failure, unspecified; N18.4 Chronic kidney disease, stage 4 (severe); J68.0 Bronchitis and pneumonitis due to chemicals, gases, fumes and vapors; I42.8 Other cardiomyopathies; Z59.01 Sheltered homelessness; L97.819 Non-pressure chronic ulcer of other part of right lower leg with unspecified severity; I5A Non-ischemic myocardial injury (non-traumatic); L03.116 Cellulitis of left lower limb; L03.115 Cellulitis of right lower limb; Z20.822 Contact with and (suspected) exposure to COVID-19; D64.9 Anemia, unspecified; E66.9 Obesity, unspecified; E78.5 Hyperlipidemia, unspecified; E11.22 Type 2 diabetes mellitus with diabetic chronic kidney disease; J45.909 Unspecified asthma, uncomplicated; F15.10 Other stimulant abuse, uncomplicated; I34.0 Nonrheumatic mitral (valve) insufficiency; I44.7 Left bundle-branch block, unspecified; K76.0 Fatty (change of) liver, not elsewhere classified; N40.0 Benign prostatic hyperplasia without lower urinary tract symptoms; F17.210 Nicotine dependence, cigarettes, uncomplicated; M79.605 Pain in left leg; B95.0 Streptococcus, group A, as the cause of diseases classified elsewhere; R65.20 Severe sepsis without septic shock; Z68.36 Body mass index [BMI] 36.0-36.9, adult; Z91.148 Patient's other noncompliance with medication regimen for other reason; Z79.899 Other long term (current) drug therapy; Z95.810 Presence of automatic (implantable) cardiac defibrillator; I25.2 Old myocardial infarction
CPT/HCPCS: 36415; 36600; 71045; 76700; 80048; 80053; 80061; 80076; 80202; 80305; 80320; 81003; 82140; 82375; 82550; 82553; 82805; 82962; 83036; 83605; 83735; 83880; 84100; 84145; 84439; 84443; 84484; 85025; 85027; 85379; 86705; 86709; 87070; 87076; 87077; 87186; 87340; 87420; 87426; 87804; 93005; 93970; 94070; 94640; 94660; 94664; 94760; 96365; 96375; 98960; 99285; A4606; J0456; J0696; J1650; J1815; J1938; J2270; J2405; J2543; J3373; G0480